=== PATIENT | female | born 1955 | race Hispanic/Latino ===

== ENCOUNTER 2016-06-29 00:49 | Emergency (ER) | payer MEDICARE, MEDICAID ==
--- NOTE | 2016-06-29 02:55 | Emergency Department Report ---
Chief Complaint: Overdose Stated Complaint: POSS OD Time Seen by Provider: 06/29/16 02:40 - HPI History of Present Illness: Patient is brought to the hospital by EMS after being found down and unresponsive. Found at home without signs of trauma. EMS gave Narcan with some clinical improvement. Patient denies overdose. She denies homicidality and suicidality. Patient has no recollection of event. She reports a mechanical fall on Sunday, and acute on chronic back pain. Vital Signs 06/29/16 06/29/16 01:08 01:21 Temperature 98.7 F Pulse Rate 108 H Respiratory 22 20 Rate Blood Pressure 106/72 Blood Pressure 106/72 [Left] O2 Sat by Pulse 100 100 Oximetry - Exam Vital Signs: Vital Signs 06/29/16 06/29/16 01:08 01:21 Temperature 98.7 F Pulse Rate 108 H Respiratory 22 20 Rate Blood Pressure 106/72 Blood Pressure 106/72 [Left] O2 Sat by Pulse 100 100 Oximetry MSE screening note: Focused history and physical exam performed. Due to findings the following was ordered: ED Disposition for MSE Condition: Stable Referrals: PRIMARY CARE, [Primary Care Provider] - 3-5 Days
[2016-06-29 04:22] LABS: Hematocrit 42.6 % (30.3-42.9); Mean Corpuscular HGB Conc 33 % (30-34); Mean Corpuscular Hemoglobin 33 pg (28-32); Mean Corpuscular Volume 102 fl (79-97); Platelet Count 116 K/mm3 (140-440); Red Blood Count 4.19 M/mm3 (3.65-5.03); Red Cell Distribution Width 14.1 % (13.2-15.2); White Blood Count 8.2 K/mm3 (4.5-11.0)
[2016-06-29 04:29] LABS: Urine Drugs of Abuse Note Disclamer
[2016-06-29 04:44] LABS: Alanine Aminotransferase 31 units/L (7-56); Albumin 3.6 g/dL (3.9-5); Alkaline Phosphatase 93 units/L (35-129); Anion Gap 28 mmol/L; Bilirubin,Total 1.4 mg/dL (0.1-1.2); Blood Urea Nitrogen 9 mg/dL (7-17); Calcium 9.1 mg/dL (8.4-10.2); Carbon Dioxide 19 mmol/L (22-30); Glucose 98 mg/dL (65-100); Potassium 4.6 mmol/L (3.6-5.0); Sodium 134 mmol/L (137-145); Total Protein 7.1 g/dL (6.3-8.2)
[2016-06-29 04:51] LABS: Bilirubin,Urine NEG (Negative); Blood,Urine SM (Negative); Ketones,Urine NEG (Negative); Leukocyte Esterase,Urine NEG (Negative); Nitrite,Urine NEG (Negative); Protein,Urine <15 mg/dL mg/dL (Negative); Urobilinogen,Urine < 2.0 mg/dL (<2.0)
[2016-06-29 05:08] LABS: Magnesium 1.5 mg/dL (1.7-2.3)
[2016-06-29] MEDS ORDERED: TORADOL IM ONE ×2 (06:29→08:45)
--- NOTE | 2016-06-29 06:53 | Emergency Department Report ---
History of Present Illness - General Chief Complaint: Overdose Stated Complaint: POSS OD Time Seen by Provider: 06/29/16 02:40 Source: EMS Mode of arrival: Stretcher Limitations: Altered Mental Status - History of Present Illness MD Complaint: accidental overdose -: Gradual, hour(s) (5) Intent: other (had a ground level fall and had back pain and founded some old percocets) Treatments Prior to Arrival: oxygen, narcan - Related Data Previous Rx's Medication Instructions Recorded Last Taken Type levETIRAcetam [Keppra TAB] 500 mg PO BID #60 tablet 03/17/16 Unknown Rx Allergies Allergy/AdvReac Type Severity Reaction Status Date / Time Sulfa (Sulfonamide Allergy Rash Verified 03/17/16 07:07 Antibiotics) ED Review of Systems ROS: Stated complaint: POSS OD Other details as noted in HPI Constitutional: denies: chills, fever Eyes: denies: eye pain, eye discharge, vision change ENT: denies: ear pain, throat pain Respiratory: denies: cough, shortness of breath, wheezing Cardiovascular: denies: chest pain, palpitations Endocrine: no symptoms reported Gastrointestinal: denies: abdominal pain, nausea, diarrhea Genitourinary: denies: urgency, dysuria, discharge Musculoskeletal: denies: back pain, joint swelling, arthralgia Skin: denies: rash, lesions Neurological: denies: headache, weakness, paresthesias Psychiatric: denies: anxiety, depression Hematological/Lymphatic: denies: easy bleeding, easy bruising ED Past Medical Hx - Past Medical History Previous Medical History?: Yes Hx Liver Disease: Yes (cirrhosis) Hx Seizures: Yes Additional medical history: hep c - Surgical History Past Surgical History?: Yes Additional Surgical History: back surgery x5 - Social History Smoking Status: Unknown if ever smoked Substance Use Type: Prescribed - Medications Home Medications: Home Medications Medication Instructions Recorded Confirmed Last Taken Type levETIRAcetam [Keppra TAB] 500 mg PO BID #60 tablet 03/17/16 Unknown Rx ED Physical Exam - General Limitations: No Limitations (saw her at 620 am and patient is alert and awake) General appearance: alert, in no apparent distress - Head Head exam: Present: atraumatic, normocephalic - Eye Eye exam: Present: normal appearance - ENT ENT exam: Present: mucous membranes moist - Neck Neck exam: Present: normal inspection - Respiratory Respiratory exam: Present: normal lung sounds bilaterally. Absent: respiratory distress - Cardiovascular Cardiovascular Exam: Present: regular rate, normal rhythm. Absent: systolic murmur, diastolic murmur, rubs, gallop - GI/Abdominal GI/Abdominal exam: Present: soft, normal bowel sounds - Extremities Exam Extremities exam: Present: normal inspection - Back Exam Back exam: Present: normal inspection - Neurological Exam Neurological exam: Present: alert, oriented X3 - Psychiatric Psychiatric exam: Present: normal affect, normal mood. Absent: depressed, agitated, anxious - Skin Skin exam: Present: warm, dry, intact, normal color. Absent: rash ED Course Vital Signs 06/29/16 06/29/16 06/29/16 01:08 01:21 05:54 Temperature 98.7 F Pulse Rate 108 H 64 Respiratory 22 20 18 Rate Blood Pressure 106/72 Blood Pressure 106/72 92/40 [Left] O2 Sat by Pulse 100 100 97 Oximetry 06/29/16 06/29/16 06/29/16 06:40 07:30 08:44 Temperature Pulse Rate 85 79 Respiratory 18 15 Rate Blood Pressure Blood Pressure 108/64 83/41 104/53 [Left] O2 Sat by Pulse 95 95 Oximetry ED Medical Decision Making - Lab Data Result diagrams: 06/29/16 04:00 06/29/16 04:00 - EKG Data -: EKG Interpreted by Me EKG shows normal: sinus rhythm Rate: normal - EKG Data When compared to previous EKG there are: no significant change Interpretation: no acute changes Critical care attestation.: If time is entered above; I have spent that time in minutes in the direct care of this critically ill patient, excluding procedure time. ED Disposition Clinical Impression: Acute hyperactive opioid intoxication delirium without use disorder Disposition: DISCHARGED TO HOME OR SELFCARE Is pt being admited?: No Does the pt Need Aspirin: No Condition: Good Referrals: PRIMARY CARE, [Primary Care Provider] - 3-5 Days [facility] [Outside] - 3-5 Days Time of Disposition: 08:52
[2016-06-29] MEDS ORDERED: NACL 0.9% 1000 ML 1,000 ML ONE (07:19)
--- NOTE | 2016-06-29 07:28 | Cat Scan Report ---
CT scan of lumbar spine: History: Fall back in. Findings: No definite evidence of acute fracture noted. Normal height of vertebral bodies 2 decrease in height of intervertebral disc bases. Sclerotic articular surfaces with osteophyte suggestive severe degenerative changes. Severe degenerative changes also noted the facet joints. Old fractures are present in the facet joints cannot be entirely excluded. No evidence of significant bony spinal stenosis. Diffuse disc bulge at L2-L3, L3-L4, L4-L5 and L5-S1. Probable bilateral neural foramina narrowing. Impression: Severe degenerative change is lumbar spine. No obvious evidence of acute fracture.
--- NOTE | 2016-06-29 07:29 | Cat Scan Report ---
FINAL REPORT PROCEDURE: CT HEAD/BRAIN WO CON TECHNIQUE: Computerized tomography of the head was performed without contrast material. HISTORY: loc COMPARISON: No prior studies are available for comparison. FINDINGS: Skull and scalp: Normal. Paranasal sinuses: Normal. Ventricles and subarachnoid spaces: Normal. Cerebrum: No evidence of hemorrhage, acute infarction or mass . Cerebellum and brainstem: No evidence of hemorrhage, acute infarction or mass. Vasculature: Normal. Comments: None. IMPRESSION: Normal Examination
[2016-06-29] MEDS ORDERED: NACL 0.9% 1000 ML 1,000 ML IV ONE (07:30)
--- NOTE | 2016-06-29 07:47 | XRay Report ---
Single view chest: Compared to 03/17/16. History: Hypoxia. Findings: Normal cardiomediastinal silhouette. Trachea is midline. No consolidation, pneumothorax or pleural effusion. Impression: No acute cardiopulmonary findings
[2016-06-29] MEDS ORDERED: PROVENTIL IH ONE (08:39)
[2016-06-29 08:45] VITALS: BP 104/53
== END 2016-06-29 11:13 | disposition home or self-care (01) ==
LOC: ED 00:49
DX: F11.121 Opioid abuse with intoxication delirium (principal); Z88.2 Allergy status to sulfonamides
CPT/HCPCS: 36415; 51701; 70450; 71010; 72131; 80053; 80307; 81001; 82550; 83735; 84484; 85027; 93005; 93010; 94640; 96360; 96372; 99285; G0480; J1885; J7030; 80320

== ENCOUNTER 2016-12-09 11:03 | Inpatient (IN) | payer MEDICARE ==
[2016-12-09 12:14] LABS: Bilirubin,Urine NEG (Negative); Blood,Urine NEG (Negative); Ketones,Urine NEG (Negative); Leukocyte Esterase,Urine NEG (Negative); Mucus,Urine FEW /HPF; Nitrite,Urine NEG (Negative); Protein,Urine <15 mg/dL mg/dL (Negative); WBC,Urine < 1.0 /HPF (0.0-6.0)
--- NOTE | 2016-12-09 12:35 | Emergency Department Report ---
HPI - General Chief Complaint: Altered Mental Status Time Seen by Provider: 12/09/16 12:09 - HPI HPI: Room 2 Patient is a 61-year-old female presenting with chief complaint of altered mental status. Patient was brought in by EMS for altered mental status. EMS reports the patient had a physician's appointment 3 days ago when she got home from the appointment she refused to get off of the floor. EMS reports the patient sustained an the past 3 days. Patient appears confused and does not answer questions appropriately. Patient continuously asks about her dog. Location: Mental state Duration: [see above] Quality: Confusion Severity: Moderate Modifying factors: [see above] Context: [see above] Mode of transportation: [not driving] ED Past Medical Hx - Past Medical History Hx Liver Disease: Yes (cirrhosis) Hx Seizures: Yes Additional medical history: hep c, leukemia - Surgical History Additional Surgical History: back surgery x5 - Family History Family history: no significant - Social History Smoking Status: Never Smoker Substance Use Type: None, Alcohol - Medications Home Medications: Home Medications Medication Instructions Recorded Confirmed Last Taken Type levETIRAcetam [Keppra TAB] 500 mg PO BID #60 tablet 03/17/16 Unknown Rx ED Review of Systems ROS: Stated complaint: SEVERE DIARRHEA,AMS Other details as noted in HPI Comment: Unobtainable due to pts medical conditions Physical Exam - Physical Exam Vital Signs: Vital Signs 12/09/16 12/09/16 11:34 11:42 Temperature 98.8 F Pulse Rate 86 Respiratory 16 Rate Blood Pressure 113/65 O2 Sat by Pulse 100 Oximetry Physical Exam: GENERAL: The patient is well-developed well-nourished female lying on stretcher appearing confused with clear speech. [] HEENT: Normocephalic. Abrasion/contusion to right cheek. Extraocular motions are intact. Patient has moist mucous membranes. NECK: Supple. Trachea midline CHEST/LUNGS: Clear to auscultation. There is no respiratory distress noted. HEART/CARDIOVASCULAR: Regular. There is no tachycardia. There is no gallop rub or murmur. ABDOMEN: Abdomen is soft, nontender. Patient has normal bowel sounds. There is no abdominal distention. SKIN: There is no rash. There is no edema. There is no diaphoresis. NEURO: The patient is awake and alert but is unable to tell the year or her current location. The patient is intermittently cooperative. The patient has no focal neurologic deficits. The patient has normal speech. Snowboard Designer equal bilaterally. No pronator drift. Moves all extremities MUSCULOSKELETAL: There is no limitation range of motion. ED Course Vital Signs 12/09/16 12/09/16 11:34 11:42 Temperature 98.8 F Pulse Rate 86 Respiratory 16 Rate Blood Pressure 113/65 O2 Sat by Pulse 100 Oximetry ED Medical Decision Making - Lab Data Result diagrams: 12/09/16 12:16 12/09/16 12:16 Laboratory Tests 12/09/16 12/09/16 12/09/16 11:41 11:44 12:16 WBC 6.9 RBC 4.24 Hgb 15.0 H Hct 43.8 H MCV 103 H MCH 35 H MCHC 34 RDW 15.0 Plt Count 123 L [place] % (Auto) [place]eler Add Manual Diff Complete Total Counted 100 Seg Neuts % (Manual) 66.0 Band Neutrophils % 3.0 Lymphocytes % (Manual) 9.0 L Reactive Lymphs % (Man) 0 Monocytes % (Manual) 22.0 H Eosinophils % (Manual) 0 Metamyelocytes % 0 Myelocytes % 0 Promyelocytes % 0 Blast Cells % 0 Nucleated RBC % Not Reportable Seg Neutrophils # Man 4.6 Band Neutrophils # 0.2 Lymphocytes # (Manual) 0.6 L Abs React Lymphs (Man) 0.0 Monocytes # (Manual) 1.5 H Eosinophils # (Manual) 0.0 Basophils # (Manual) 0.0 Metamyelocytes # 0.0 Myelocytes # 0.0 Promyelocytes # 0.0 Blast Cells # 0.0 WBC Morphology Not Reportable Hypersegmented Neuts Not Reportable Hyposegmented Neuts Not Reportable Hypogranular Neuts Not Reportable Smudge Cells Not Reportable Toxic Granulation Not Reportable Toxic Vacuolation Not Reportable Dohle Bodies Not Reportable Pelger-Huet Anomaly Not Reportable Chaya Rods Not Reportable Platelet Estimate Cons Clumped Platelets Not Reportable Plt Clumps, EDTA Not Reportable Large Platelets Rare Giant Platelets Not Reportable Platelet Satelliting Not Reportable Plt Morphology Comment Not Reportable RBC Morphology Not Reportable Dimorphic RBCs Not Reportable Polychromasia Not Reportable Hypochromasia Not Reportable Poikilocytosis Not Reportable Anisocytosis 1+ Microcytosis Not Reportable Macrocytosis Not Reportable Spherocytes Not Reportable Pappenheimer Bodies Not Reportable Sickle Cells Not Reportable Target Cells Not Reportable Tear Drop Cells Not Reportable Ovalocytes Not Reportable Helmet Cells Not Reportable Villar-[place] Bodies Not Reportable Jeremiah Rings Not Reportable [place] Cells Not Reportable Bite Cells Not Reportable Crenated Cell Not Reportable Elliptocytes Not Reportable Acanthocytes (Spur) Not Reportable Rouleaux Not Reportable Hemoglobin C Crystals Not Reportable Schistocytes Not Reportable Malaria parasites Not Reportable Hugo Bodies Not Reportable Hem Pathologist Commnt No PT INR APTT Sodium Potassium Chloride Carbon Dioxide Anion Gap BUN Creatinine Estimated GFR BUN/Creatinine Ratio Glucose POC Glucose 114 H Lactic Acid Calcium Total Bilirubin AST ALT Alkaline Phosphatase Ammonia Total Creatine Kinase CK-MB (CK-2) CK-MB (CK-2) Rel Index Troponin T Total Protein Albumin Albumin/Globulin Ratio Urine Color [place] Urine Turbidity Clear Urine pH 6.0 Ur Specific [place] 1.012 Urine Protein <15 mg/dl Urine Glucose (UA) Neg Urine Ketones Neg Urine Blood Neg Urine Nitrite Neg Urine Bilirubin Neg Urine Urobilinogen 4.0 Ur Leukocyte Esterase Neg Urine WBC (Auto) < 1.0 Urine RBC (Auto) 1.0 U Epithel Cells (Auto) < 1.0 Hyaline Casts 1 Urine Mucus Few 12/09/16 12/09/16 12/09/16 12:16 12:16 12:16 WBC RBC Hgb Hct MCV MCH MCHC RDW Plt Count [place] % (Auto) Add Manual Diff Total Counted Seg Neuts % (Manual) Band Neutrophils % Lymphocytes % (Manual) Reactive Lymphs % (Man) Monocytes % (Manual) Eosinophils % (Manual) Metamyelocytes % Myelocytes % Promyelocytes % Blast Cells % Nucleated RBC % Seg Neutrophils # Man Band Neutrophils # Lymphocytes # (Manual) Abs React Lymphs (Man) Monocytes # (Manual) Eosinophils # (Manual) Basophils # (Manual) Metamyelocytes # Myelocytes # Promyelocytes # Blast Cells # WBC Morphology Hypersegmented Neuts Hyposegmented Neuts Hypogranular Neuts Smudge Cells Toxic Granulation Toxic Vacuolation Dohle Bodies Pelger-Huet Anomaly Chaya Rods Platelet Estimate Clumped Platelets Plt Clumps, EDTA Large Platelets Giant Platelets Platelet Satelliting Plt Morphology Comment RBC Morphology Dimorphic RBCs Polychromasia Hypochromasia Poikilocytosis Anisocytosis Microcytosis Macrocytosis Spherocytes Pappenheimer Bodies Sickle Cells Target Cells Tear Drop Cells Ovalocytes Helmet Cells Villar[place] Bodies Jeremiah Rings Lynda Cells Bite Cells Crenated Cell Elliptocytes Acanthocytes (Spur) Rouleaux Hemoglobin C Crystals Schistocytes Malaria parasites Hugo Bodies Hem Pathologist Commnt PT INR APTT Sodium 133 L Potassium 4.5 Chloride 93.2 L Carbon Dioxide 24 Anion Gap 20 BUN 18 H Creatinine 1.1 Estimated GFR 50 BUN/Creatinine Ratio 16.36 Glucose 119 H POC Glucose Lactic Acid 3.60 H* Calcium 9.2 Total Bilirubin 2.70 H AST 194 H ALT 49 Alkaline Phosphatase 94 Ammonia Total Creatine Kinase CK-MB (CK-2) CK-MB (CK-2) Rel Index Troponin T < 0.010 Total Protein 7.6 Albumin 3.5 L Albumin/Globulin Ratio 0.9 Urine Color Urine Turbidity Urine pH Ur Specific [place] Urine Protein Urine Glucose (UA) Urine Ketones Urine Blood Urine Nitrite Urine Bilirubin Urine Urobilinogen Ur Leukocyte Esterase Urine WBC (Auto) Urine RBC (Auto) U Epithel Cells (Auto) Hyaline Casts Urine Mucus 12/09/16 12/09/16 12/09/16 12:29 12:29 12:29 WBC RBC Hgb Hct MCV MCH MCHC RDW Plt Count [place] % (Auto) Add Manual Diff Total Counted Seg Neuts % (Manual) Band Neutrophils % Lymphocytes % (Manual) Reactive Lymphs % (Man) Monocytes % (Manual) Eosinophils % (Manual) Metamyelocytes % Myelocytes % Promyelocytes % Blast Cells % Nucleated RBC % Seg Neutrophils # Man Band Neutrophils # Lymphocytes # (Manual) Abs React Lymphs (Man) Monocytes # (Manual) Eosinophils # (Manual) Basophils # (Manual) Metamyelocytes # Myelocytes # Promyelocytes # Blast Cells # WBC Morphology Hypersegmented Neuts Hyposegmented Neuts Hypogranular Neuts Smudge Cells Toxic Granulation Toxic Vacuolation Dohle Bodies Pelger-Huet Anomaly Chaya Rods Platelet Estimate Clumped Platelets Plt Clumps, EDTA Large Platelets Giant Platelets Platelet Satelliting Plt Morphology Comment RBC Morphology Dimorphic RBCs Polychromasia Hypochromasia Poikilocytosis Anisocytosis Microcytosis Macrocytosis Spherocytes Pappenheimer Bodies Sickle Cells Target Cells Tear Drop Cells Ovalocytes Helmet Cells [place] Bodies Jeremiah Rings Lynda Cells Bite Cells Crenated Cell Elliptocytes Acanthocytes (Spur) Rouleaux Hemoglobin C Crystals Schistocytes Malaria parasites Hugo Bodies Hem Pathologist Commnt PT 18.0 H INR 1.41 H APTT 32.4 Sodium Potassium Chloride Carbon Dioxide Anion Gap BUN Creatinine Estimated GFR BUN/Creatinine Ratio Glucose POC Glucose Lactic Acid Calcium Total Bilirubin AST ALT Alkaline Phosphatase Ammonia 116.0 H Total Creatine Kinase 8426 H CK-MB (CK-2) 80.2 H CK-MB (CK-2) Rel Index 0.9 Troponin T Total Protein Albumin Albumin/Globulin Ratio Urine Color Urine Turbidity Urine pH Ur Specific [place] Urine Protein Urine Glucose (UA) Urine Ketones Urine Blood Urine Nitrite Urine Bilirubin Urine Urobilinogen Ur Leukocyte Esterase Urine WBC (Auto) Urine RBC (Auto) U Epithel Cells (Auto) Hyaline Casts Urine Mucus - EKG Data -: EKG Interpreted by Me EKG shows normal: sinus rhythm Rate: normal - EKG Data When compared to previous EKG there are: previous EKG unavailable Interpretation: nonspecific ST-T wave amandeep (T-wave inversions in lead 3) - Radiology Data Radiology results: report reviewed (CT head, CT cervical spine, CT facial bones) , image reviewed (CT head, CT cervical spine, CT facial bones, chest x-ray) interpreted by me: Chest x-ray-left lower lobe atelectasis, no pneumothorax See report - Differential Diagnosis hepatic encephalopathy, ICH, rhabdomyolysis, Critical care attestation.: If time is entered above; I have spent that time in minutes in the direct care of this critically ill patient, excluding procedure time. ED Disposition Clinical Impression: Altered mental status, Rhabdomyolysis, Hepatic encephalopathy Disposition: OP ADMIT IP TO THIS HOSP Is pt being admited?: Yes Condition: Fair Referrals: PRIMARY CARE, [Primary Care Provider] - 3-5 Days Time of Disposition: 15:18 (hospitalist notified)
[2016-12-09 13:01] LABS: Hematocrit 43.8 % (30.3-42.9); Mean Corpuscular HGB Conc 34 % (30-34); Mean Corpuscular Hemoglobin 35 pg (28-32); Mean Corpuscular Volume 103 fl (79-97); Platelet Count 123 K/mm3 (140-440); Red Blood Count 4.24 M/mm3 (3.65-5.03); White Blood Count 6.9 K/mm3 (4.5-11.0)
[2016-12-09 13:02] LABS: Albumin 3.5 g/dL (3.9-5); Albumin/Globulin Ratio 0.9 %; BUN/Creatinine Ratio 16.36; Bilirubin,Total 2.7 mg/dL (0.1-1.2); Calcium 9.2 mg/dL (8.4-10.2); Chloride 93.2 mmol/L (98-107); Potassium 4.5 mmol/L (3.6-5.0); Total Protein 7.6 g/dL (6.3-8.2)
[2016-12-09 13:12] LABS: INR 1.41 (0.87-1.13)
[2016-12-09 13:13] LABS: Partial Thromboplastin Time 32.4 Sec. (24.2-36.6)
[2016-12-09 13:24] LABS: Creatine Kinase MB 80.2 ng/mL (0.0-4.0)
[2016-12-09] MEDS ORDERED: CEPHULAC PO ONE (13:32)
--- NOTE | 2016-12-09 13:36 | XRay Report ---
AP CHEST :12/09/16 11:03:00 CLINICAL: Altered mental status. COMPARISON:06/29/16 FINDINGS: Normal heart and pulmonary vasculature. The lungs are mildly hyperexpanded. The lungs are clear except for stable left lower lobe subsegmental atelectasis versus scar. The bones and soft tissues are normal. IMPRESSION: Mild pulmonary hyperinflation and left lower lobe subsegmental atelectasis versus scar. No CHF or pneumonia.
[2016-12-09] MEDS ORDERED: NACL 0.9% 1000 ML 1,000 ML IV ONE (13:40)
[2016-12-09 14:05] LABS: Blastocytes % (Manual) 0 %; Eosinophils % (Manual) 0 % (0.0-4.3)
[2016-12-09 14:06] LABS: Anisocytosis 1+; Diff Status Complete; Large Platelets Rare; Platelet Estimate Cons
--- NOTE | 2016-12-09 14:23 | Cat Scan Report ---
FINAL REPORT PROCEDURE: CT CERVICAL SPINE WO CON TECHNIQUE: Computerized tomography of the cervical spine was performed from the skull base to T1 without contrast material. HISTORY: altered mental status, prior C-spine fusion COMPARISON: No prior studies are available for comparison. FINDINGS: Patient has had prior fusion of C5 and C6. Uncovertebral osteophytes at this level cause moderate left neural foraminal narrowing. Ligamentum flavum calcification is seen at C4-5 and C6-7. Left paracentral broad-based disc bulge or protrusion is seen at C3-4 causing cord contact and possible compression. Chronic changes at C4-5, C5-6 and C6-7 likely cause cord compression. There is no subluxation. No prevertebral soft tissue swelling is seen. No C-spine fracture is seen. IMPRESSION: Diffuse arthritic changes are seen with posterior element hypertrophy and calcified disc osteophyte complexes causing possible cord compression at C4-5, C5-6, and C6-7. At C3-4 there is broad-based left paracentral disc bulge or protrusion that may cause cord compression. This could be new or old.
--- NOTE | 2016-12-09 14:27 | Cat Scan Report ---
FINAL REPORT PROCEDURE: CT FACIAL BONES WO CON TECHNIQUE: Computerized tomography of the facial bones and soft tissues with axial and coronal sections performed from the cranial aspect of the frontal sinuses to the caudal portion of the mandible without contrast material. HISTORY: altered mental status, right facial contusions COMPARISON: No prior studies are available for comparison. FINDINGS: Trace mucosal thickening is seen in the paranasal sinuses, likely within normal limits. There is new versus old nondisplaced fracture of the tip of the nasal bones. Similar appearance is seen of the anterior maxillary spine the globes appear symmetric. No postseptal swelling is seen. Ecchymosis is seen in the right side of the face. No orbital or mandible fracture is seen. IMPRESSION: New versus old nondisplaced fractures are seen of the tips of the nasal bones and anterior maxillary spine.
--- NOTE | 2016-12-09 14:30 | History and Physical Report ---
History of Present Illness Chief complaint: confusion History of present illness: 61 YO Female with HCV, Seizure Disorder, Cirrhosis presents to ED for evaluation. Pt is confused and unable to provide history. History taken from ED staff, and EMS. Pt seen and evaluated in ED and foud to be disheveled, encephalopathic, with active rhabdomyolysis, and unable to provide history. EMS notified and upon arrival, Pt was found lying on floor, confused, and unable to get up. Pt last seen 3 days ago by PCP, and after returning home from appointment, pt has been lying on the floor. No reports of fever, chills, CP, Palpitations, NVD, Trauma, or recent ill contacts. Past History Past Medical History: hepatitis, seizures, other (Cirrhosis) Past Surgical History: Other (back surgery) Social history: , Lives alone. denies: smoking, alcohol abuse, prescription drug abuse, IV drug use Family history: hypertension Medications and Allergies Allergies Allergy/AdvReac Type Severity Reaction Status Date / Time Sulfa (Sulfonamide Allergy Rash Verified 03/17/16 07:07 Antibiotics) Home Medications Medication Instructions Recorded Confirmed Last Taken Type levETIRAcetam [Keppra TAB] 500 mg PO BID #60 tablet 03/17/16 Unknown Rx Active Meds: Active Medications Sodium Chloride (Nacl 0.9% 1000 Ml) 1,000 mls @ 999 mls/hr IV ONCE ONE Stop: 12/09/16 14:40 Last Admin: 12/09/16 14:15 Dose: 999 mls/hr Review of Systems ROS unobtainable: due to mental status Exam - Constitutional Vitals: Temp Pulse Resp BP Pulse Ox 98.8 F 86 16 113/65 100 12/09/16 11:42 12/09/16 11:34 12/09/16 11:34 12/09/16 11:34 12/09/16 11:34 General appearance: Present: mild distress, obese, disheveled - Respiratory Respiratory effort: normal Respiratory: bilateral: CTA - Cardiovascular Heart Sounds: Present: S1 & S2. Absent: rub, click - Extremities Extremities: pulses symmetrical, No edema Peripheral Pulses: within normal limits - Abdominal General gastrointestinal: Present: soft, non-tender, non-distended, normal bowel sounds Female genitourinary: Present: normal - Integumentary Integumentary: Present: clear, warm, dry - Musculoskeletal Musculoskeletal: generalized weakness - Psychiatric Psychiatric: no intact judgment & insight, no memory intact - Neurologic Neurologic: CNII-XII intact, moves all extremities Results - Labs CBC & Chem 7: 12/09/16 12:16 12/09/16 12:16 Labs: Abnormal lab results 12/09/16 12/09/16 12/09/16 Range/Units 11:44 12:16 12:16 Hgb 15.0 H (10.1-14.3) gm/dl Hct 43.8 H (30.3-42.9) % MCV 103 H (79-97) fl MCH 35 H (28-32) pg Plt Count 123 L (140-440) K/mm3 Lymphocytes % (Manual) 9.0 L (13.4-35.0) % Monocytes % (Manual) 22.0 H (0.0-7.3) % Lymphocytes # (Manual) 0.6 L (1.2-5.4) K/mm3 Monocytes # (Manual) 1.5 H (0.0-0.8) K/mm3 PT (12.2-14.9) Sec. INR (0.87-1.13) Sodium 133 L (137-145) mmol/L Chloride 93.2 L (98-107) mmol/L BUN 18 H (7-17) mg/dL Glucose 119 H (65-100) mg/dL POC Glucose 114 H (70-105) Lactic Acid (0.7-2.0) mmol/L Total Bilirubin 2.70 H (0.1-1.2) mg/dL AST 194 H (5-40) units/L Ammonia (25-60) umol/L Total Creatine Kinase (30-135) units/L CK-MB (CK-2) (0.0-4.0) ng/mL Albumin 3.5 L (3.9-5) g/dL 12/09/16 12/09/16 12/09/16 Range/Units 12:16 12:29 12:29 Hgb (10.1-14.3) gm/dl Hct (30.3-42.9) % MCV (79-97) fl MCH (28-32) pg Plt Count (140-440) K/mm3 Lymphocytes % (Manual) (13.4-35.0) % Monocytes % (Manual) (0.0-7.3) % Lymphocytes # (Manual) (1.2-5.4) K/mm3 Monocytes # (Manual) (0.0-0.8) K/mm3 PT 18.0 H (12.2-14.9) Sec. INR 1.41 H (0.87-1.13) Sodium (137-145) mmol/L Chloride (98-107) mmol/L BUN (7-17) mg/dL Glucose (65-100) mg/dL POC Glucose (70-105) Lactic Acid 3.60 H* (0.7-2.0) mmol/L Total Bilirubin (0.1-1.2) mg/dL AST (5-40) units/L Ammonia 116.0 H (25-60) umol/L Total Creatine Kinase (30-135) units/L CK-MB (CK-2) (0.0-4.0) ng/mL Albumin (3.9-5) g/dL 12/09/16 Range/Units 12:29 Hgb (10.1-14.3) gm/dl Hct (30.3-42.9) % MCV (79-97) fl MCH (28-32) pg Plt Count (140-440) K/mm3 Lymphocytes % (Manual) (13.4-35.0) % Monocytes % (Manual) (0.0-7.3) % Lymphocytes # (Manual) (1.2-5.4) K/mm3 Monocytes # (Manual) (0.0-0.8) K/mm3 PT (12.2-14.9) Sec. INR (0.87-1.13) Sodium (137-145) mmol/L Chloride (98-107) mmol/L BUN (7-17) mg/dL Glucose (65-100) mg/dL POC Glucose (70-105) Lactic Acid (0.7-2.0) mmol/L Total Bilirubin (0.1-1.2) mg/dL AST (5-40) units/L Ammonia (25-60) umol/L Total Creatine Kinase 8426 H (30-135) units/L CK-MB (CK-2) 80.2 H (0.0-4.0) ng/mL Albumin (3.9-5) g/dL Assessment and Plan - Patient Problems (1) Rhabdomyolysis Current Visit: Yes Status: Acute Qualifiers: Rhabdomyolysis type: R Encounter type: E Plan to address problem: IVF resuscitation, monitor uop q shift, supportive care, repeat ck level (2) Lactic acidosis Current Visit: Yes Status: Acute Plan to address problem: IVF resuscitation, repeat lactic acid level, serial physical exams. (3) HCV (hepatitis C virus) Current Visit: Yes Status: Acute Qualifiers: Viral hepatitis chronicity: V Hepatic coma status: H Plan to address problem: Outpatient GI F/U (4) Hepatic encephalopathy Current Visit: Yes Status: Acute Plan to address problem: Lactulose, serial ammonia level, neuro checks. (5) DVT prophylaxis Current Visit: Yes Status: Acute
--- NOTE | 2016-12-09 14:31 | Cat Scan Report ---
FINAL REPORT PROCEDURE: CT HEAD/BRAIN WO CON TECHNIQUE: Computerized tomography of the head was performed without contrast material. HISTORY: altered mental status COMPARISON: CT exam dated June 29, 2016 FINDINGS: Trace mucosal thickening is seen in the paranasal sinuses, likely within normal limits. Mastoid air cells appear clear. There may be nondisplaced fractures of the tips of the nasal bones and anterior maxillary spine. No calvarial fracture is seen. Cerebral ventricles are normal in size. Minimal chronic small vessel ischemic changes are similar to prior study. No acute intracranial hemorrhage or mass effect is seen. IMPRESSION: Calvarial fracture or acute intracranial hemorrhage is seen.
[2016-12-09] MEDS ORDERED: PROVENTIL IH PRN (14:33)
[2016-12-09] MEDS ORDERED: NACL 0.9% 1000 ML 1,000 ML IV SCH (15:00)
[2016-12-10] MEDS: NACL 0.9% 1000 ML 2,000 ML IV SCH ×3 (02:21→18:05)
[2016-12-10] MEDS: CEPHULAC PO SCH (09:45)
--- NOTE | 2016-12-10 22:23 | Progress Note ---
Assessment and Plan Assessment and plan: 1. Acute hepatic encephalopathy Continue lactulose, supportive care Monitor ammonia level 2. HCV/cirrhosis 3. Rhabdomyolysis Traumatic, found down IV fluids, and CPK 4. Acute kidney injury Possible secondary to vasomotor nephropathy due to poor intake/rhabdomyolysis IV fluids, monitor renal function/electrolytes 5. Lactic acidosis No sign/symptoms of infection 6. Seizure disorder Reason on medications 7. Thrombocytopenia Likely secondary to cirrhosis Monitor 8. DVT prophylaxis SCDs History Interval history: Mental status improved, slightly confused, but able to answer questions appropriately; feeling better Hospitalist Physical - Constitutional Vitals: Temp Pulse Resp BP Pulse Ox 98.7 F 83 18 118/73 99 12/10/16 20:29 12/10/16 20:29 12/10/16 20:29 12/10/16 20:29 12/10/16 20:29 General appearance: Present: no acute distress - EENT Eyes: Present: PERRL, EOM intact. Absent: scleral icterus, conjunctival injection - Neck Neck: Present: supple, normal ROM. Absent: masses or JVD - Respiratory Respiratory effort: normal Respiratory: bilateral: CTA, negative: rhonchi, wheezing - Cardiovascular Rhythm: regular Heart Sounds: Present: S1 & S2. Absent: systolic murmur - Extremities Extremities: no ischemia - Abdominal General gastrointestinal: soft, non-tender, non-distended, normal bowel sounds - Psychiatric Psychiatric: cooperative - Neurologic Neurologic: CNII-XII intact, no focal deficits Results - Labs CBC & Chem 7: 12/09/16 12:16 12/09/16 12:16 Labs: Laboratory Last Values WBC 6.9 K/mm3 (4.5-11.0) 12/09/16 12:16 RBC 4.24 M/mm3 (3.65-5.03) 12/09/16 12:16 Hgb 15.0 gm/dl (10.1-14.3) H 12/09/16 12:16 Hct 43.8 % (30.3-42.9) H 12/09/16 12:16 MCV 103 fl (79-97) H 12/09/16 12:16 MCH 35 pg (28-32) H 12/09/16 12:16 MCHC 34 % (30-34) 12/09/16 12:16 RDW 15.0 % (13.2-15.2) 12/09/16 12:16 Plt Count 123 K/mm3 (140-440) L 12/09/16 12:16 [place] % (Auto) Relay Man 12/09/16 12:16 Add Manual Diff Complete 12/09/16 12:16 Total Counted 100 12/09/16 12:16 Seg Neuts % (Manual) 66.0 % (40.0-70.0) 12/09/16 12:16 Band Neutrophils % 3.0 % 12/09/16 12:16 Lymphocytes % (Manual) 9.0 % (13.4-35.0) L 12/09/16 12:16 Reactive Lymphs % (Man) 0 % 12/09/16 12:16 Monocytes % (Manual) 22.0 % (0.0-7.3) H 12/09/16 12:16 Eosinophils % (Manual) 0 % (0.0-4.3) 12/09/16 12:16 Metamyelocytes % 0 % 12/09/16 12:16 Myelocytes % 0 % 12/09/16 12:16 Promyelocytes % 0 % 12/09/16 12:16 Blast Cells % 0 % 12/09/16 12:16 Nucleated RBC % Not Reportable 12/09/16 12:16 Seg Neutrophils # Man 4.6 K/mm3 (1.8-7.7) 12/09/16 12:16 Band Neutrophils # 0.2 K/mm3 12/09/16 12:16 Lymphocytes # (Manual) 0.6 K/mm3 (1.2-5.4) L 12/09/16 12:16 Abs React Lymphs (Man) 0.0 K/mm3 12/09/16 12:16 Monocytes # (Manual) 1.5 K/mm3 (0.0-0.8) H 12/09/16 12:16 Eosinophils # (Manual) 0.0 K/mm3 (0.0-0.4) 12/09/16 12:16 Basophils # (Manual) 0.0 K/mm3 (0.0-0.1) 12/09/16 12:16 Metamyelocytes # 0.0 K/mm3 12/09/16 12:16 Myelocytes # 0.0 K/mm3 12/09/16 12:16 Promyelocytes # 0.0 K/mm3 12/09/16 12:16 Blast Cells # 0.0 K/mm3 12/09/16 12:16 WBC Morphology Not Reportable 12/09/16 12:16 Hypersegmented Neuts Not Reportable 12/09/16 12:16 Hyposegmented Neuts Not Reportable 12/09/16 12:16 Hypogranular Neuts Not Reportable 12/09/16 12:16 Smudge Cells Not Reportable 12/09/16 12:16 Toxic Granulation Not Reportable 12/09/16 12:16 Toxic Vacuolation Not Reportable 12/09/16 12:16 Dohle Bodies Not Reportable 12/09/16 12:16 Pelger-Huet Anomaly Not Reportable 12/09/16 12:16 Chaya Rods Not Reportable 12/09/16 12:16 Platelet Estimate Cons 12/09/16 12:16 Clumped Platelets Not Reportable 12/09/16 12:16 Plt Clumps, EDTA Not Reportable 12/09/16 12:16 Large Platelets Rare 12/09/16 12:16 Giant Platelets Not Reportable 12/09/16 12:16 Platelet Satelliting Not Reportable 12/09/16 12:16 Plt Morphology Comment Not Reportable 12/09/16 12:16 RBC Morphology Not Reportable 12/09/16 12:16 Dimorphic RBCs Not Reportable 12/09/16 12:16 Polychromasia Not Reportable 12/09/16 12:16 Hypochromasia Not Reportable 12/09/16 12:16 Poikilocytosis Not Reportable 12/09/16 12:16 Anisocytosis 1+ 12/09/16 12:16 Microcytosis Not Reportable 12/09/16 12:16 Macrocytosis Not Reportable 12/09/16 12:16 Spherocytes Not Reportable 12/09/16 12:16 Pappenheimer Bodies Not Reportable 12/09/16 12:16 Sickle Cells Not Reportable 12/09/16 12:16 Target Cells Not Reportable 12/09/16 12:16 Tear Drop Cells Not Reportable 12/09/16 12:16 Ovalocytes Not Reportable 12/09/16 12:16 Helmet Cells Not Reportable 12/09/16 12:16 Villar-[place] Bodies Not Reportable 12/09/16 12:16 [place] Rings Not Reportable 12/09/16 12:16 [place] Cells Not Reportable 12/09/16 12:16 Bite Cells Not Reportable 12/09/16 12:16 Crenated Cell Not Reportable 12/09/16 12:16 Elliptocytes Not Reportable 12/09/16 12:16 Acanthocytes (Spur) Not Reportable 12/09/16 12:16 Rouleaux Not Reportable 12/09/16 12:16 Hemoglobin C Crystals Not Reportable 12/09/16 12:16 Schistocytes Not Reportable 12/09/16 12:16 Malaria parasites Not Reportable 12/09/16 12:16 Hugo Bodies Not Reportable 12/09/16 12:16 Hem Pathologist Commnt No 12/09/16 12:16 PT 18.0 Sec. (12.2-14.9) H 12/09/16 12:29 INR 1.41 (0.87-1.13) H 12/09/16 12:29 APTT 32.4 Sec. (24.2-36.6) 12/09/16 12:29 Sodium 133 mmol/L (137-145) L 12/09/16 12:16 Potassium 4.5 mmol/L (3.6-5.0) 12/09/16 12:16 Chloride 93.2 mmol/L (98-107) L 12/09/16 12:16 Carbon Dioxide 24 mmol/L (22-30) 12/09/16 12:16 Anion Gap 20 mmol/L 12/09/16 12:16 BUN 18 mg/dL (7-17) H 12/09/16 12:16 Creatinine 1.1 mg/dL (0.7-1.2) 12/09/16 12:16 Estimated GFR 50 ml/min 12/09/16 12:16 BUN/Creatinine Ratio 16.36 % 12/09/16 12:16 Glucose 119 mg/dL (65-100) H 12/09/16 12:16 POC Glucose 114 (70-105) H 12/09/16 11:44 Lactic Acid 2.00 mmol/L (0.7-2.0) 12/10/16 00:01 Calcium 9.2 mg/dL (8.4-10.2) 12/09/16 12:16 Total Bilirubin 2.70 mg/dL (0.1-1.2) H 12/09/16 12:16 AST 194 units/L (5-40) H 12/09/16 12:16 ALT 49 units/L (7-56) 12/09/16 12:16 Alkaline Phosphatase 94 units/L (35-129) 12/09/16 12:16 Ammonia 116.0 umol/L (25-60) H 12/09/16 12:29 Total Creatine Kinase 8426 units/L (30-135) H 12/09/16 12:29 CK-MB (CK-2) 80.2 ng/mL (0.0-4.0) H 12/09/16 12:29 CK-MB (CK-2) Rel Index 0.9 (0-4) 12/09/16 12:29 Troponin T < 0.010 ng/mL (0.00-0.029) 12/09/16 12:16 Total Protein 7.6 g/dL (6.3-8.2) 12/09/16 12:16 Albumin 3.5 g/dL (3.9-5) L 12/09/16 12:16 Albumin/Globulin Ratio 0.9 % 12/09/16 12:16 Urine Color [place] (Yellow) 12/09/16 11:41 Urine Turbidity Clear (Clear) 12/09/16 11:41 Urine pH 6.0 (5.0-7.0) 12/09/16 11:41 Ur Specific [place] 1.012 (1.003-1.030) 12/09/16 11:41 Urine Protein <15 mg/dl mg/dL (Negative) 12/09/16 11:41 Urine Glucose (UA) Neg mg/dL (Negative) 12/09/16 11:41 Urine Ketones Neg mg/dL (Negative) 12/09/16 11:41 Urine Blood Neg (Negative) 12/09/16 11:41 Urine Nitrite Neg (Negative) 12/09/16 11:41 Urine Bilirubin Neg (Negative) 12/09/16 11:41 Urine Urobilinogen 4.0 mg/dL (<2.0) 12/09/16 11:41 Ur Leukocyte Esterase Neg (Negative) 12/09/16 11:41 Urine WBC (Auto) < 1.0 /HPF (0.0-6.0) 12/09/16 11:41 Urine RBC (Auto) 1.0 /HPF (0.0-6.0) 12/09/16 11:41 U Epithel Cells (Auto) < 1.0 /HPF (0-13.0) 12/09/16 11:41 Hyaline Casts 1 /LPF 12/09/16 11:41 Urine Mucus Few /HPF 12/09/16 11:41
[2016-12-10] MEDS: XANAX PO SCH (23:40)
[2016-12-10] MEDS: TRIPLE ANTIBIOTIC TP SCH (23:41)
--- NOTE | 2016-12-11 02:48 | Admit Criteria Form ---
Admission Criteria Documentation: MENTAL STATUS CHANGE Clinical Indications for Inpatient Care (Place 'X' for any and all applicable criteria): Ongoing inpatient care may be needed for 1 or more of the following(1)(2)(3)(5)( 6): [X ]I. Suspected serious etiology (eg, medical disorder, PUBLIC ADDRESS TECHNICIAN event) of altered mental status [ ]II. Danger to self or others not manageable at lower level of care [ ]III. Grave disability (eg, inability to perform self care necessary at lower level of care) [ ]IV. Agitation or inappropriate behavior interfering with care for primary condition (eg, attempting to discontinue lines or drains prematurely, unable to cooperate with respiratory care) [ ]V. Delirium [A] [D][E] as described by 1 or more of the following(26): [ ]a) Delirium due to alcohol or sedative [F] withdrawal [ ]b) Delirium of uncertain etiology that has not responded to appropriate empiric treatment [ ]c) Delirium that prevents performance of a life-sustaining function (eg, feeding or hydrating oneself) [ ]. General contraindications and/or Inappropriate clinical situations for Observational Care in patients with Mental Status Change, when ANY ONE of the following is required: [ ]a) Prediction of prolongation of LOS based on ANY ONE of the following may be considered as a contraindication for observational care 2, 3, 4, 5, 6, 7, 8, 9, 10, 11 [ ]i) Age > 65 yrs. [ ]ii) Patient arriving by ambulance [ ]iii) Patient with high acuity [ ]iv) Patient requiring vital sign monitoring [ ]v) Patient on IV medication [ ]b) Systolic blood pressures greater than or equal to 180mmHg 3, 12 [ ]c) Patient with altered mental status including delirium and other alteration of consciousness, (3) [ ]d) Patient whose discharge disposition will be to a senior care home or rehabilitation home should not be managed in Emergency Department Observation Unit. CMS rule requires 3 days hospital stay before such placement.3,13 [ ]e) Patient with failure to thrive due to broad array of etiologies 3,16,17 [ ]f) Inability to ambulate 3,14 Extended stay beyond goal length of stay for the primary condition may be needed until ALL of the following are present(3)(5): [ ]a) Underlying medical etiology of mental status change is absent, or has been established and adequately treated [ ]b) Danger to self or others is absent or manageable at lower level of care. [ ]c) Behavior crisis management, including physical or chemical restraints, is not required or available at lower level of car [ ]d) Substance or alcohol withdrawal is absent or manageable at lower level of care. [ ]e) Behavioral symptoms (eg, agitation, somnolence, inappropriate behavior) are absent, or are manageable at lower level of care. The original [facility] [employer] content created by [facility] [employer] has been revised. The portions of the content which have been revised are identified through the use of italic text or in bold, and [facility] has neither reviewed nor approved the modified material. All other unmodified content is copyright [facility] [employer]. Please see references footnoted in the original [facility] Admission Criteria Met: Yes
[2016-12-11] MEDS: NACL 0.9% 1000 ML 2,000 ML IV SCH ×2 (04:35→14:45)
[2016-12-11 05:28] LABS: White Blood Count 7.2 K/mm3 (4.5-11.0)
[2016-12-11 05:29] LABS: Basophils % (Auto) 0.4 % (0.0-1.8); Eosinophils % (Auto) 4.2 % (0.0-4.3); Hematocrit 41.7 % (30.3-42.9); Hemoglobin 14.2 gm/dl (10.1-14.3); Mean Corpuscular HGB Conc 34 % (30-34); Mean Corpuscular Hemoglobin 35 pg (28-32); Mean Corpuscular Volume 104 fl (79-97); Platelet Count 100 K/mm3 (140-440); Red Cell Distribution Width 15.3 % (13.2-15.2)
[2016-12-11 05:50] LABS: Alanine Aminotransferase 51 units/L (7-56); Albumin/Globulin Ratio 0.8 %; Alkaline Phosphatase 76 units/L (35-129); Anion Gap 17 mmol/L; Blood Urea Nitrogen 6 mg/dL (7-17); Calcium 8.5 mg/dL (8.4-10.2); Carbon Dioxide 23 mmol/L (22-30); Chloride 99.9 mmol/L (98-107); Glucose 101 mg/dL (65-100); Potassium 3.2 mmol/L (3.6-5.0); Sodium 137 mmol/L (137-145); Total Protein 6.7 g/dL (6.3-8.2)
[2016-12-11 06:02] LABS: Creatine Kinase 2675 units/L (30-135)
[2016-12-11] MEDS: TRIPLE ANTIBIOTIC TP SCH ×3 (08:47→20:00)
[2016-12-11] MEDS: POTASSIUM CHLORIDE FEEDTUBE SCH ×2 (08:58→14:28)
--- NOTE | 2016-12-11 09:24 | Progress Note ---
Assessment and Plan Assessment and plan: 1. Acute hepatic encephalopathy Continue lactulose, supportive care Ammopnia level 81 today 2. HCV/cirrhosis 3. Rhabdomyolysis Traumatic, was found down Continue iv fluids Creatine kinase 2675 tod 4. Lactic acidosis No sign/symptoms of infection 6. Seizure disorder 7. Thrombocytopenia Likely secondary to cirrhosis Monitor 8. DVT prophylaxis SCDs History Interval history: confusion improving, No chest pain Hospitalist Physical - Physical exam Narrative exam: Gen appearance: Not in acute distress HEENT: normocephalic, atraumatic Neck: supple, no JVD, BUDDY Lungs: Clear to auscultation bilaterally, no crackles or wheezes Heart :S1 and S2 regular, no murmurs, rubs or gallop Abdomen: Soft, Non tender, non distended, bowel sounds present Extremities :no edema, no clubbing or cyanosis Neuro: Mild confusion, no focal neurological signs - Constitutional Vitals: Temp Pulse Resp BP Pulse Ox 97.9 F 84 20 130/70 99 12/11/16 08:00 12/11/16 08:00 12/11/16 08:00 12/11/16 08:00 12/11/16 08:00 General appearance: Present: no acute distress Results - Labs CBC & Chem 7: 12/11/16 05:07 12/11/16 05:07 Labs: Laboratory Last Values WBC 7.2 K/mm3 (4.5-11.0) 12/11/16 05:07 RBC 4.00 M/mm3 (3.65-5.03) 12/11/16 05:07 Hgb 14.2 gm/dl (10.1-14.3) 12/11/16 05:07 Hct 41.7 % (30.3-42.9) 12/11/16 05:07 MCV 104 fl (79-97) H 12/11/16 05:07 MCH 35 pg (28-32) H 12/11/16 05:07 MCHC 34 % (30-34) 12/11/16 05:07 RDW 15.3 % (13.2-15.2) H 12/11/16 05:07 Plt Count 100 K/mm3 (140-440) L 12/11/16 05:07 Lymph % (Auto) 24.4 % (13.4-35.0) 12/11/16 05:07 [place] % (Auto) 14.9 % (0.0-7.3) H 12/11/16 05:07 [place] % (Auto) 4.2 % (0.0-4.3) 12/11/16 05:07 Baso % (Auto) 0.4 % (0.0-1.8) 12/11/16 05:07 Lymph # 1.8 K/mm3 (1.2-5.4) 12/11/16 05:07 [place] # 1.1 K/mm3 (0.0-0.8) H 12/11/16 05:07 Eos # 0.3 K/mm3 (0.0-0.4) 12/11/16 05:07 Baso # 0.0 K/mm3 (0.0-0.1) 12/11/16 05:07 Add Manual Diff Complete 12/09/16 12:16 Total Counted 100 12/09/16 12:16 Seg Neutrophils % 56.1 % (40.0-70.0) 12/11/16 05:07 Seg Neuts % (Manual) 66.0 % (40.0-70.0) 12/09/16 12:16 Band Neutrophils % 3.0 % 12/09/16 12:16 Lymphocytes % (Manual) 9.0 % (13.4-35.0) L 12/09/16 12:16 Reactive Lymphs % (Man) 0 % 12/09/16 12:16 Monocytes % (Manual) 22.0 % (0.0-7.3) H 12/09/16 12:16 Eosinophils % (Manual) 0 % (0.0-4.3) 12/09/16 12:16 Metamyelocytes % 0 % 12/09/16 12:16 Myelocytes % 0 % 12/09/16 12:16 Promyelocytes % 0 % 12/09/16 12:16 Blast Cells % 0 % 12/09/16 12:16 Nucleated RBC % Not Reportable 12/09/16 12:16 Seg Neutrophils # 4.1 K/mm3 (1.8-7.7) 12/11/16 05:07 Seg Neutrophils # Man 4.6 K/mm3 (1.8-7.7) 12/09/16 12:16 Band Neutrophils # 0.2 K/mm3 12/09/16 12:16 Lymphocytes # (Manual) 0.6 K/mm3 (1.2-5.4) L 12/09/16 12:16 Abs React Lymphs (Man) 0.0 K/mm3 12/09/16 12:16 Monocytes # (Manual) 1.5 K/mm3 (0.0-0.8) H 12/09/16 12:16 Eosinophils # (Manual) 0.0 K/mm3 (0.0-0.4) 12/09/16 12:16 Basophils # (Manual) 0.0 K/mm3 (0.0-0.1) 12/09/16 12:16 Metamyelocytes # 0.0 K/mm3 12/09/16 12:16 Myelocytes # 0.0 K/mm3 12/09/16 12:16 Promyelocytes # 0.0 K/mm3 12/09/16 12:16 Blast Cells # 0.0 K/mm3 12/09/16 12:16 WBC Morphology Not Reportable 12/09/16 12:16 Hypersegmented Neuts Not Reportable 12/09/16 12:16 Hyposegmented Neuts Not Reportable 12/09/16 12:16 Hypogranular Neuts Not Reportable 12/09/16 12:16 Smudge Cells Not Reportable 12/09/16 12:16 Toxic Granulation Not Reportable 12/09/16 12:16 Toxic Vacuolation Not Reportable 12/09/16 12:16 Dohle Bodies Not Reportable 12/09/16 12:16 Pelger-Huet Anomaly Not Reportable 12/09/16 12:16 Chaya Rods Not Reportable 12/09/16 12:16 Platelet Estimate Cons 12/09/16 12:16 Clumped Platelets Not Reportable 12/09/16 12:16 Plt Clumps, EDTA Not Reportable 12/09/16 12:16 Large Platelets Rare 12/09/16 12:16 Giant Platelets Not Reportable 12/09/16 12:16 Platelet Satelliting Not Reportable 12/09/16 12:16 Plt Morphology Comment Not Reportable 12/09/16 12:16 RBC Morphology Not Reportable 12/09/16 12:16 Dimorphic RBCs Not Reportable 12/09/16 12:16 Polychromasia Not Reportable 12/09/16 12:16 Hypochromasia Not Reportable 12/09/16 12:16 Poikilocytosis Not Reportable 12/09/16 12:16 Anisocytosis 1+ 12/09/16 12:16 Microcytosis Not Reportable 12/09/16 12:16 Macrocytosis Not Reportable 12/09/16 12:16 Spherocytes Not Reportable 12/09/16 12:16 Pappenheimer Bodies Not Reportable 12/09/16 12:16 Sickle Cells Not Reportable 12/09/16 12:16 Target Cells Not Reportable 12/09/16 12:16 Tear Drop Cells Not Reportable 12/09/16 12:16 Ovalocytes Not Reportable 12/09/16 12:16 Helmet Cells Not Reportable 12/09/16 12:16 [place] Bodies Not Reportable 12/09/16 12:16 [place] Rings Not Reportable 12/09/16 12:16 [place] Cells Not Reportable 12/09/16 12:16 Bite Cells Not Reportable 12/09/16 12:16 Crenated Cell Not Reportable 12/09/16 12:16 Elliptocytes Not Reportable 12/09/16 12:16 Acanthocytes (Spur) Not Reportable 12/09/16 12:16 Rouleaux Not Reportable 12/09/16 12:16 Hemoglobin C Crystals Not Reportable 12/09/16 12:16 Schistocytes Not Reportable 12/09/16 12:16 Malaria parasites Not Reportable 12/09/16 12:16 Hugo Bodies Not Reportable 12/09/16 12:16 Hem Pathologist Commnt No 12/09/16 12:16 PT 18.0 Sec. (12.2-14.9) H 12/09/16 12:29 INR 1.41 (0.87-1.13) H 12/09/16 12:29 APTT 32.4 Sec. (24.2-36.6) 12/09/16 12:29 Sodium 137 mmol/L (137-145) 12/11/16 05:07 Potassium 3.2 mmol/L (3.6-5.0) L D 12/11/16 05:07 Chloride 99.9 mmol/L (98-107) 12/11/16 05:07 Carbon Dioxide 23 mmol/L (22-30) 12/11/16 05:07 Anion Gap 17 mmol/L 12/11/16 05:07 BUN 6 mg/dL (7-17) L 12/11/16 05:07 Creatinine 0.5 mg/dL (0.7-1.2) L D 12/11/16 05:07 Estimated GFR > 60 ml/min 12/11/16 05:07 BUN/Creatinine Ratio 12.00 % 12/11/16 05:07 Glucose 101 mg/dL (65-100) H 12/11/16 05:07 POC Glucose 114 (70-105) H 12/09/16 11:44 Lactic Acid 2.00 mmol/L (0.7-2.0) 12/10/16 00:01 Calcium 8.5 mg/dL (8.4-10.2) 12/11/16 05:07 Total Bilirubin 2.90 mg/dL (0.1-1.2) H 12/11/16 05:07 AST 177 units/L (5-40) H 12/11/16 05:07 ALT 51 units/L (7-56) 12/11/16 05:07 Alkaline Phosphatase 76 units/L (35-129) 12/11/16 05:07 Ammonia 81.0 umol/L (25-60) H 12/11/16 05:07 Total Creatine Kinase 2675 units/L (30-135) H 12/11/16 05:07 CK-MB (CK-2) 80.2 ng/mL (0.0-4.0) H 12/09/16 12:29 CK-MB (CK-2) Rel Index 0.9 (0-4) 12/09/16 12:29 Troponin T < 0.010 ng/mL (0.00-0.029) 12/09/16 12:16 Total Protein 6.7 g/dL (6.3-8.2) 12/11/16 05:07 Albumin 3.0 g/dL (3.9-5) L 12/11/16 05:07 Albumin/Globulin Ratio 0.8 % 12/11/16 05:07 Urine Color [place] (Yellow) 12/09/16 11:41 Urine Turbidity Clear (Clear) 12/09/16 11:41 Urine pH 6.0 (5.0-7.0) 12/09/16 11:41 Ur Specific [place] 1.012 (1.003-1.030) 12/09/16 11:41 Urine Protein <15 mg/dl mg/dL (Negative) 12/09/16 11:41 Urine Glucose (UA) Neg mg/dL (Negative) 12/09/16 11:41 Urine Ketones Neg mg/dL (Negative) 12/09/16 11:41 Urine Blood Neg (Negative) 12/09/16 11:41 Urine Nitrite Neg (Negative) 12/09/16 11:41 Urine Bilirubin Neg (Negative) 12/09/16 11:41 Urine Urobilinogen 4.0 mg/dL (<2.0) 12/09/16 11:41 Ur Leukocyte Esterase Neg (Negative) 12/09/16 11:41 Urine WBC (Auto) < 1.0 /HPF (0.0-6.0) 12/09/16 11:41 Urine RBC (Auto) 1.0 /HPF (0.0-6.0) 12/09/16 11:41 U Epithel Cells (Auto) < 1.0 /HPF (0-13.0) 12/09/16 11:41 Hyaline Casts 1 /LPF 12/09/16 11:41 Urine Mucus Few /HPF 12/09/16 11:41
[2016-12-11] MEDS: KEPPRA PO SCH ×2 (10:08→22:39)
[2016-12-11] MEDS: XANAX PO SCH ×2 (10:09→22:40)
[2016-12-11] MEDS: CEPHULAC PO SCH (10:09)
[2016-12-12] MEDS: NACL 0.9% 1000 ML 2,000 ML IV SCH ×3 (00:24→16:58)
[2016-12-12] MEDS: TRIPLE ANTIBIOTIC TP SCH ×3 (08:42→22:27)
[2016-12-12 09:28] LABS: Anion Gap 16 mmol/L; Blood Urea Nitrogen 4 mg/dL (7-17); Calcium 8.1 mg/dL (8.4-10.2); Carbon Dioxide 23 mmol/L (22-30); Creatine Kinase 1320 units/L (30-135); Glucose 104 mg/dL (65-100); Potassium 4.1 mmol/L (3.6-5.0); Sodium 137 mmol/L (137-145)
--- NOTE | 2016-12-12 09:43 | Progress Note ---
Assessment and Plan Assessment and plan: Acute hepatic encephalopathy Continue lactulose, supportive care Ammonia level normal at 40 today HCV/cirrhosis Rhabdomyolysis Traumatic, was found down Continue iv fluids Creatine kinase much improved, 1320 today Lactic acidosis No sign/symptoms of infection Seizure disorder Thrombocytopenia Likely secondary to cirrhosis Monitor General weakness. Physical therapy consulted pain both feet, ankle. Obtain X rays DVT prophylaxis SCDs only because of thrombocytopenia. History Interval history: confusion improving, No chest pain, gen weakness pain both ankles,feet Hospitalist Physical - Physical exam Narrative exam: Gen appearance: Not in acute distress HEENT: normocephalic, atraumatic Neck: supple, no JVD, BUDDY Lungs: Clear to auscultation bilaterally, no crackles or wheezes Heart :S1 and S2 regular, no murmurs, rubs or gallop Abdomen: Soft, Non tender, non distended, bowel sounds present Extremities : no edema, no clubbing or cyanosis Neuro: Mild confusion, Awake,alert,oriented. No focal neurological signs - Constitutional Vitals: Temp Pulse Resp BP Pulse Ox 97.9 F 92 H 16 135/70 100 12/12/16 07:05 12/12/16 07:05 12/12/16 07:05 12/12/16 07:05 12/12/16 07:05 General appearance: Present: no acute distress Results - Labs CBC & Chem 7: 12/11/16 05:07 12/12/16 04:05 Labs: Laboratory Last Values WBC 7.2 K/mm3 (4.5-11.0) 12/11/16 05:07 RBC 4.00 M/mm3 (3.65-5.03) 12/11/16 05:07 Hgb 14.2 gm/dl (10.1-14.3) 12/11/16 05:07 Hct 41.7 % (30.3-42.9) 12/11/16 05:07 MCV 104 fl (79-97) H 12/11/16 05:07 MCH 35 pg (28-32) H 12/11/16 05:07 MCHC 34 % (30-34) 12/11/16 05:07 RDW 15.3 % (13.2-15.2) H 12/11/16 05:07 Plt Count 100 K/mm3 (140-440) L 12/11/16 05:07 Lymph % (Auto) 24.4 % (13.4-35.0) 12/11/16 05:07 [place] % (Auto) 14.9 % (0.0-7.3) H 12/11/16 05:07 Eos % (Auto) 4.2 % (0.0-4.3) 12/11/16 05:07 Baso % (Auto) 0.4 % (0.0-1.8) 12/11/16 05:07 Lymph # 1.8 K/mm3 (1.2-5.4) 12/11/16 05:07 [place] # 1.1 K/mm3 (0.0-0.8) H 12/11/16 05:07 Eos # 0.3 K/mm3 (0.0-0.4) 12/11/16 05:07 Baso # 0.0 K/mm3 (0.0-0.1) 12/11/16 05:07 Add Manual Diff Complete 12/09/16 12:16 Total Counted 100 12/09/16 12:16 Seg Neutrophils % 56.1 % (40.0-70.0) 12/11/16 05:07 Seg Neuts % (Manual) 66.0 % (40.0-70.0) 12/09/16 12:16 Band Neutrophils % 3.0 % 12/09/16 12:16 Lymphocytes % (Manual) 9.0 % (13.4-35.0) L 12/09/16 12:16 Reactive Lymphs % (Man) 0 % 12/09/16 12:16 Monocytes % (Manual) 22.0 % (0.0-7.3) H 12/09/16 12:16 Eosinophils % (Manual) 0 % (0.0-4.3) 12/09/16 12:16 Metamyelocytes % 0 % 12/09/16 12:16 Myelocytes % 0 % 12/09/16 12:16 Promyelocytes % 0 % 12/09/16 12:16 Blast Cells % 0 % 12/09/16 12:16 Nucleated RBC % Not Reportable 12/09/16 12:16 Seg Neutrophils # 4.1 K/mm3 (1.8-7.7) 12/11/16 05:07 Seg Neutrophils # Man 4.6 K/mm3 (1.8-7.7) 12/09/16 12:16 Band Neutrophils # 0.2 K/mm3 12/09/16 12:16 Lymphocytes # (Manual) 0.6 K/mm3 (1.2-5.4) L 12/09/16 12:16 Abs React Lymphs (Man) 0.0 K/mm3 12/09/16 12:16 Monocytes # (Manual) 1.5 K/mm3 (0.0-0.8) H 12/09/16 12:16 Eosinophils # (Manual) 0.0 K/mm3 (0.0-0.4) 12/09/16 12:16 Basophils # (Manual) 0.0 K/mm3 (0.0-0.1) 12/09/16 12:16 Metamyelocytes # 0.0 K/mm3 12/09/16 12:16 Myelocytes # 0.0 K/mm3 12/09/16 12:16 Promyelocytes # 0.0 K/mm3 12/09/16 12:16 Blast Cells # 0.0 K/mm3 12/09/16 12:16 WBC Morphology Not Reportable 12/09/16 12:16 Hypersegmented Neuts Not Reportable 12/09/16 12:16 Hyposegmented Neuts Not Reportable 12/09/16 12:16 Hypogranular Neuts Not Reportable 12/09/16 12:16 Smudge Cells Not Reportable 12/09/16 12:16 Toxic Granulation Not Reportable 12/09/16 12:16 Toxic Vacuolation Not Reportable 12/09/16 12:16 Dohle Bodies Not Reportable 12/09/16 12:16 Pelger-Huet Anomaly Not Reportable 12/09/16 12:16 Chaya Rods Not Reportable 12/09/16 12:16 Platelet Estimate Cons 12/09/16 12:16 Clumped Platelets Not Reportable 12/09/16 12:16 Plt Clumps, EDTA Not Reportable 12/09/16 12:16 Large Platelets Rare 12/09/16 12:16 Giant Platelets Not Reportable 12/09/16 12:16 Platelet Satelliting Not Reportable 12/09/16 12:16 Plt Morphology Comment Not Reportable 12/09/16 12:16 RBC Morphology Not Reportable 12/09/16 12:16 Dimorphic RBCs Not Reportable 12/09/16 12:16 Polychromasia Not Reportable 12/09/16 12:16 Hypochromasia Not Reportable 12/09/16 12:16 Poikilocytosis Not Reportable 12/09/16 12:16 Anisocytosis 1+ 12/09/16 12:16 Microcytosis Not Reportable 12/09/16 12:16 Macrocytosis Not Reportable 12/09/16 12:16 Spherocytes Not Reportable 12/09/16 12:16 Pappenheimer Bodies Not Reportable 12/09/16 12:16 Sickle Cells Not Reportable 12/09/16 12:16 Target Cells Not Reportable 12/09/16 12:16 Tear Drop Cells Not Reportable 12/09/16 12:16 Ovalocytes Not Reportable 12/09/16 12:16 Helmet Cells Not Reportable 12/09/16 12:16 Villar-[place] Bodies Not Reportable 12/09/16 12:16 [place] Rings Not Reportable 12/09/16 12:16 [place] Cells Not Reportable 12/09/16 12:16 Bite Cells Not Reportable 12/09/16 12:16 Crenated Cell Not Reportable 12/09/16 12:16 Elliptocytes Not Reportable 12/09/16 12:16 Acanthocytes (Spur) Not Reportable 12/09/16 12:16 Rouleaux Not Reportable 12/09/16 12:16 Hemoglobin C Crystals Not Reportable 12/09/16 12:16 Schistocytes Not Reportable 12/09/16 12:16 Malaria parasites Not Reportable 12/09/16 12:16 Hugo Bodies Not Reportable 12/09/16 12:16 Hem Pathologist Commnt No 12/09/16 12:16 PT 18.0 Sec. (12.2-14.9) H 12/09/16 12:29 INR 1.41 (0.87-1.13) H 12/09/16 12:29 APTT 32.4 Sec. (24.2-36.6) 12/09/16 12:29 Sodium 137 mmol/L (137-145) 12/12/16 04:05 Potassium 3.2 mmol/L (3.6-5.0) L D 12/11/16 05:07 Chloride 102.3 mmol/L (98-107) 12/12/16 04:05 Carbon Dioxide 23 mmol/L (22-30) 12/12/16 04:05 Anion Gap 16 mmol/L 12/12/16 04:05 BUN 4 mg/dL (7-17) L 12/12/16 04:05 Creatinine 0.5 mg/dL (0.7-1.2) L 12/12/16 04:05 Estimated GFR > 60 ml/min 12/12/16 04:05 BUN/Creatinine Ratio 8.00 % 12/12/16 04:05 Glucose 104 mg/dL (65-100) H 12/12/16 04:05 POC Glucose 114 (70-105) H 12/09/16 11:44 Lactic Acid 2.00 mmol/L (0.7-2.0) 12/10/16 00:01 Calcium 8.1 mg/dL (8.4-10.2) L 12/12/16 04:05 Total Bilirubin 2.90 mg/dL (0.1-1.2) H 12/11/16 05:07 AST 177 units/L (5-40) H 12/11/16 05:07 ALT 51 units/L (7-56) 12/11/16 05:07 Alkaline Phosphatase 76 units/L (35-129) 12/11/16 05:07 Ammonia 40.0 umol/L (25-60) 12/12/16 08:45 Total Creatine Kinase 1320 units/L (30-135) H 12/12/16 04:05 CK-MB (CK-2) 80.2 ng/mL (0.0-4.0) H 12/09/16 12:29 CK-MB (CK-2) Rel Index 0.9 (0-4) 12/09/16 12:29 Troponin T < 0.010 ng/mL (0.00-0.029) 12/09/16 12:16 Total Protein 6.7 g/dL (6.3-8.2) 12/11/16 05:07 Albumin 3.0 g/dL (3.9-5) L 12/11/16 05:07 Albumin/Globulin Ratio 0.8 % 12/11/16 05:07 Urine Color [place] (Yellow) 12/09/16 11:41 Urine Turbidity Clear (Clear) 12/09/16 11:41 Urine pH 6.0 (5.0-7.0) 12/09/16 11:41 Ur Specific [place] 1.012 (1.003-1.030) 12/09/16 11:41 Urine Protein <15 mg/dl mg/dL (Negative) 12/09/16 11:41 Urine Glucose (UA) Neg mg/dL (Negative) 12/09/16 11:41 Urine Ketones Neg mg/dL (Negative) 12/09/16 11:41 Urine Blood Neg (Negative) 12/09/16 11:41 Urine Nitrite Neg (Negative) 12/09/16 11:41 Urine Bilirubin Neg (Negative) 12/09/16 11:41 Urine Urobilinogen 4.0 mg/dL (<2.0) 12/09/16 11:41 Ur Leukocyte Esterase Neg (Negative) 12/09/16 11:41 Urine WBC (Auto) < 1.0 /HPF (0.0-6.0) 12/09/16 11:41 Urine RBC (Auto) 1.0 /HPF (0.0-6.0) 12/09/16 11:41 U Epithel Cells (Auto) < 1.0 /HPF (0-13.0) 12/09/16 11:41 Hyaline Casts 1 /LPF 12/09/16 11:41 Urine Mucus Few /HPF 12/09/16 11:41
[2016-12-12 09:49] LABS: Chloride 102.3 mmol/L (98-107)
[2016-12-12] MEDS: XANAX PO SCH ×2 (09:51→22:23)
[2016-12-12] MEDS: CEPHULAC PO SCH (09:51)
[2016-12-12] MEDS: KEPPRA PO SCH ×2 (09:51→22:22)
[2016-12-12] MEDS: XIFAXAN PO SCH (22:23)
--- NOTE | 2016-12-13 07:34 | XRay Report ---
BILATERAL ANKLES, 2 VIEWS History: Bilateral ankle pain. Findings: No comparison. Bone mineralization is normal. No acute osseous findings or advanced joint pathology. Mild osteoarthritic changes are identified. The soft tissues are unremarkable. Impression: Mild osteoarthritic changes. No acute process.
--- NOTE | 2016-12-13 07:38 | XRay Report ---
BILATERAL FEET, 2 VIEWS History: Bilateral foot pain. Findings: There is normal bone mineralization. There are minimal osteoarthritic changes in the mid feet bilaterally and first metatarsophalangeal joints bilaterally. No erosive joint pathology. Small accessory navicular bones are identified bilaterally, right greater than left. On the lateral view of the right foot, there is suggestion of a subtle cortical defect in the distal right fibula 5 cm proximal to the right ankle joint. This was not clearly demonstrated on the right ankle views performed same day. The etiology of this is unclear. This may represent a healing, nondisplaced fracture. Please correlate with the images and consider further evaluation with CT or MRI. Impression: Mild degenerative changes. Questionable abnormality seen in the distal right fibula, see above.
[2016-12-13] MEDS: NACL 0.9% 1000 ML 2,000 ML IV SCH ×2 (07:46→16:29)
--- NOTE | 2016-12-13 10:00 | Progress Note ---
Assessment and Plan Assessment and plan: Acute hepatic encephalopathy, much improved Continue lactulose, supportive care Ammonia level normal yesterday 40 today HCV/cirrhosis Rhabdomyolysis Traumatic, was found down Continue iv fluids Creatine kinase much improved, 509 today Lactic acidosis No sign/symptoms of infection Seizure disorder Thrombocytopenia Likely secondary to cirrhosis Monitor General weakness. Physical therapy consulted pain both feet, ankle. X ray shows some abormality right fibula. Obtain MRI right leg as recommended DVT prophylaxis SCDs only because of thrombocytopenia. Disposition. For subacute rehab placement History Interval history: confusion improving, No chest pain, gen weakness pain both feet, right worse Hospitalist Physical - Physical exam Narrative exam: Gen appearance: Not in acute distress HEENT: normocephalic, atraumatic Neck: supple, no JVD, BUDDY Lungs: Clear to auscultation bilaterally, no crackles or wheezes Heart :S1 and S2 regular, no murmurs, rubs or gallop Abdomen: Soft, Non tender, non distended, bowel sounds present Extremities : no edema, no clubbing or cyanosis, small wounds both feet Neuro: Mild confusion, Awake,alert,oriented. No focal neurological signs - Constitutional Vitals: Temp Pulse Resp BP Pulse Ox 98.3 F 92 H 20 112/66 100 12/12/16 23:00 12/12/16 23:00 12/12/16 23:00 12/12/16 23:00 12/12/16 23:00 General appearance: Present: no acute distress Results - Labs CBC & Chem 7: 12/11/16 05:07 12/12/16 04:05 Labs: Laboratory Last Values WBC 7.2 K/mm3 (4.5-11.0) 12/11/16 05:07 RBC 4.00 M/mm3 (3.65-5.03) 12/11/16 05:07 Hgb 14.2 gm/dl (10.1-14.3) 12/11/16 05:07 Hct 41.7 % (30.3-42.9) 12/11/16 05:07 MCV 104 fl (79-97) H 12/11/16 05:07 MCH 35 pg (28-32) H 12/11/16 05:07 MCHC 34 % (30-34) 12/11/16 05:07 RDW 15.3 % (13.2-15.2) H 12/11/16 05:07 Plt Count 100 K/mm3 (140-440) L 12/11/16 05:07 Lymph % (Auto) 24.4 % (13.4-35.0) 12/11/16 05:07 [place] % (Auto) 14.9 % (0.0-7.3) H 12/11/16 05:07 Eos % (Auto) 4.2 % (0.0-4.3) 12/11/16 05:07 Baso % (Auto) 0.4 % (0.0-1.8) 12/11/16 05:07 Lymph # 1.8 K/mm3 (1.2-5.4) 12/11/16 05:07 [place] # 1.1 K/mm3 (0.0-0.8) H 12/11/16 05:07 Eos # 0.3 K/mm3 (0.0-0.4) 12/11/16 05:07 Baso # 0.0 K/mm3 (0.0-0.1) 12/11/16 05:07 Add Manual Diff Complete 12/09/16 12:16 Total Counted 100 12/09/16 12:16 Seg Neutrophils % 56.1 % (40.0-70.0) 12/11/16 05:07 Seg Neuts % (Manual) 66.0 % (40.0-70.0) 12/09/16 12:16 Band Neutrophils % 3.0 % 12/09/16 12:16 Lymphocytes % (Manual) 9.0 % (13.4-35.0) L 12/09/16 12:16 Reactive Lymphs % (Man) 0 % 12/09/16 12:16 Monocytes % (Manual) 22.0 % (0.0-7.3) H 12/09/16 12:16 Eosinophils % (Manual) 0 % (0.0-4.3) 12/09/16 12:16 Metamyelocytes % 0 % 12/09/16 12:16 Myelocytes % 0 % 12/09/16 12:16 Promyelocytes % 0 % 12/09/16 12:16 Blast Cells % 0 % 12/09/16 12:16 Nucleated RBC % Not Reportable 12/09/16 12:16 Seg Neutrophils # 4.1 K/mm3 (1.8-7.7) 12/11/16 05:07 Seg Neutrophils # Man 4.6 K/mm3 (1.8-7.7) 12/09/16 12:16 Band Neutrophils # 0.2 K/mm3 12/09/16 12:16 Lymphocytes # (Manual) 0.6 K/mm3 (1.2-5.4) L 12/09/16 12:16 Abs React Lymphs (Man) 0.0 K/mm3 12/09/16 12:16 Monocytes # (Manual) 1.5 K/mm3 (0.0-0.8) H 12/09/16 12:16 Eosinophils # (Manual) 0.0 K/mm3 (0.0-0.4) 12/09/16 12:16 Basophils # (Manual) 0.0 K/mm3 (0.0-0.1) 12/09/16 12:16 Metamyelocytes # 0.0 K/mm3 12/09/16 12:16 Myelocytes # 0.0 K/mm3 12/09/16 12:16 Promyelocytes # 0.0 K/mm3 12/09/16 12:16 Blast Cells # 0.0 K/mm3 12/09/16 12:16 WBC Morphology Not Reportable 12/09/16 12:16 Hypersegmented Neuts Not Reportable 12/09/16 12:16 Hyposegmented Neuts Not Reportable 12/09/16 12:16 Hypogranular Neuts Not Reportable 12/09/16 12:16 Smudge Cells Not Reportable 12/09/16 12:16 Toxic Granulation Not Reportable 12/09/16 12:16 Toxic Vacuolation Not Reportable 12/09/16 12:16 Dohle Bodies Not Reportable 12/09/16 12:16 Pelger-Huet Anomaly Not Reportable 12/09/16 12:16 Chaya Rods Not Reportable 12/09/16 12:16 Platelet Estimate Cons 12/09/16 12:16 Clumped Platelets Not Reportable 12/09/16 12:16 Plt Clumps, EDTA Not Reportable 12/09/16 12:16 Large Platelets Rare 12/09/16 12:16 Giant Platelets Not Reportable 12/09/16 12:16 Platelet Satelliting Not Reportable 12/09/16 12:16 Plt Morphology Comment Not Reportable 12/09/16 12:16 RBC Morphology Not Reportable 12/09/16 12:16 Dimorphic RBCs Not Reportable 12/09/16 12:16 Polychromasia Not Reportable 12/09/16 12:16 Hypochromasia Not Reportable 12/09/16 12:16 Poikilocytosis Not Reportable 12/09/16 12:16 Anisocytosis 1+ 12/09/16 12:16 Microcytosis Not Reportable 12/09/16 12:16 Macrocytosis Not Reportable 12/09/16 12:16 Spherocytes Not Reportable 12/09/16 12:16 Pappenheimer Bodies Not Reportable 12/09/16 12:16 Sickle Cells Not Reportable 12/09/16 12:16 Target Cells Not Reportable 12/09/16 12:16 Tear Drop Cells Not Reportable 12/09/16 12:16 Ovalocytes Not Reportable 12/09/16 12:16 Helmet Cells Not Reportable 12/09/16 12:16 Villar-[place] Bodies Not Reportable 12/09/16 12:16 [place] Rings Not Reportable 12/09/16 12:16 [place] Cells Not Reportable 12/09/16 12:16 Bite Cells Not Reportable 12/09/16 12:16 Crenated Cell Not Reportable 12/09/16 12:16 Elliptocytes Not Reportable 12/09/16 12:16 Acanthocytes (Spur) Not Reportable 12/09/16 12:16 Rouleaux Not Reportable 12/09/16 12:16 Hemoglobin C Crystals Not Reportable 12/09/16 12:16 Schistocytes Not Reportable 12/09/16 12:16 Malaria parasites Not Reportable 12/09/16 12:16 [place] Bodies Not Reportable 12/09/16 12:16 Hem Pathologist Commnt No 12/09/16 12:16 PT 18.0 Sec. (12.2-14.9) H 12/09/16 12:29 INR 1.41 (0.87-1.13) H 12/09/16 12:29 APTT 32.4 Sec. (24.2-36.6) 12/09/16 12:29 Sodium 137 mmol/L (137-145) 12/12/16 04:05 Potassium 4.1 mmol/L (3.6-5.0) D 12/12/16 04:05 Chloride 102.3 mmol/L (98-107) 12/12/16 04:05 Carbon Dioxide 23 mmol/L (22-30) 12/12/16 04:05 Anion Gap 16 mmol/L 12/12/16 04:05 BUN 4 mg/dL (7-17) L 12/12/16 04:05 Creatinine 0.5 mg/dL (0.7-1.2) L 12/12/16 04:05 Estimated GFR > 60 ml/min 12/12/16 04:05 BUN/Creatinine Ratio 8.00 % 12/12/16 04:05 Glucose 104 mg/dL (65-100) H 12/12/16 04:05 POC Glucose 114 (70-105) H 12/09/16 11:44 Lactic Acid 2.00 mmol/L (0.7-2.0) 12/10/16 00:01 Calcium 8.1 mg/dL (8.4-10.2) L 12/12/16 04:05 Total Bilirubin 2.90 mg/dL (0.1-1.2) H 12/11/16 05:07 AST 177 units/L (5-40) H 12/11/16 05:07 ALT 51 units/L (7-56) 12/11/16 05:07 Alkaline Phosphatase 76 units/L (35-129) 12/11/16 05:07 Ammonia 40.0 umol/L (25-60) 12/12/16 08:45 Total Creatine Kinase 509 units/L (30-135) H 12/13/16 04:46 CK-MB (CK-2) 80.2 ng/mL (0.0-4.0) H 12/09/16 12:29 CK-MB (CK-2) Rel Index 0.9 (0-4) 12/09/16 12:29 Troponin T < 0.010 ng/mL (0.00-0.029) 12/09/16 12:16 Total Protein 6.7 g/dL (6.3-8.2) 12/11/16 05:07 Albumin 3.0 g/dL (3.9-5) L 12/11/16 05:07 Albumin/Globulin Ratio 0.8 % 12/11/16 05:07 Urine Color [place] (Yellow) 12/09/16 11:41 Urine Turbidity Clear (Clear) 12/09/16 11:41 Urine pH 6.0 (5.0-7.0) 12/09/16 11:41 Ur Specific [place] 1.012 (1.003-1.030) 12/09/16 11:41 Urine Protein <15 mg/dl mg/dL (Negative) 12/09/16 11:41 Urine Glucose (UA) Neg mg/dL (Negative) 12/09/16 11:41 Urine Ketones Neg mg/dL (Negative) 12/09/16 11:41 Urine Blood Neg (Negative) 12/09/16 11:41 Urine Nitrite Neg (Negative) 12/09/16 11:41 Urine Bilirubin Neg (Negative) 12/09/16 11:41 Urine Urobilinogen 4.0 mg/dL (<2.0) 12/09/16 11:41 Ur Leukocyte Esterase Neg (Negative) 12/09/16 11:41 Urine WBC (Auto) < 1.0 /HPF (0.0-6.0) 12/09/16 11:41 Urine RBC (Auto) 1.0 /HPF (0.0-6.0) 12/09/16 11:41 U Epithel Cells (Auto) < 1.0 /HPF (0-13.0) 12/09/16 11:41 Hyaline Casts 1 /LPF 12/09/16 11:41 Urine Mucus Few /HPF 12/09/16 11:41
[2016-12-13] MEDS: KEPPRA PO SCH ×2 (10:35→21:25)
[2016-12-13] MEDS: XIFAXAN PO SCH ×2 (10:36→21:25)
[2016-12-13] MEDS: XANAX PO SCH ×2 (10:36→21:25)
[2016-12-13] MEDS: CEPHULAC PO SCH (10:36)
[2016-12-13] MEDS: TRIPLE ANTIBIOTIC TP SCH ×3 (10:38→21:29)
--- NOTE | 2016-12-14 09:26 | Progress Note ---
Assessment and Plan Assessment and plan: Acute hepatic encephalopathy, now resolved Continue lactulose, supportive care Ammonia level now normal. HCV/cirrhosis Rhabdomyolysis Traumatic, was found down Continue iv fluids Creatine kinase close to normal Lactic acidosis No sign/symptoms of infection Seizure disorder Thrombocytopenia Likely secondary to cirrhosis Monitor General weakness. Physical therapy consulted pain both feet, ankle. X ray shows some abormality right fibula. MRI shows poss old healed fracture. DVT prophylaxis: SCDs only because of thrombocytopenia. Disposition. For subacute rehab placement. Medical stable for discharge. Will put discharge orders in. History Interval history: confusion resolved, No chest pain pain both feet improved Hospitalist Physical - Physical exam Narrative exam: Gen appearance: Not in acute distress HEENT: normocephalic, atraumatic Neck: supple, no JVD, BUDDY Lungs: Clear to auscultation bilaterally, no crackles or wheezes Heart :S1 and S2 regular, no murmurs, rubs or gallop Abdomen: Soft, Non tender, non distended, bowel sounds present Extremities : no edema, no clubbing or cyanosis, small wounds both feet Neuro: Mild confusion, Awake,alert,oriented. No focal neurological signs - Constitutional Vitals: Temp Pulse Resp BP Pulse Ox 98.2 F 92 H 18 133/63 100 12/14/16 00:00 12/14/16 00:00 12/14/16 00:00 12/14/16 00:00 12/14/16 00:00 General appearance: Present: no acute distress Results - Labs CBC & Chem 7: 12/11/16 05:07 12/12/16 04:05 Labs: Laboratory Last Values WBC 7.2 K/mm3 (4.5-11.0) 12/11/16 05:07 RBC 4.00 M/mm3 (3.65-5.03) 12/11/16 05:07 Hgb 14.2 gm/dl (10.1-14.3) 12/11/16 05:07 Hct 41.7 % (30.3-42.9) 12/11/16 05:07 MCV 104 fl (79-97) H 12/11/16 05:07 MCH 35 pg (28-32) H 12/11/16 05:07 MCHC 34 % (30-34) 12/11/16 05:07 RDW 15.3 % (13.2-15.2) H 12/11/16 05:07 Plt Count 100 K/mm3 (140-440) L 12/11/16 05:07 Lymph % (Auto) 24.4 % (13.4-35.0) 12/11/16 05:07 [place] % (Auto) 14.9 % (0.0-7.3) H 12/11/16 05:07 Eos % (Auto) 4.2 % (0.0-4.3) 12/11/16 05:07 Baso % (Auto) 0.4 % (0.0-1.8) 12/11/16 05:07 Lymph # 1.8 K/mm3 (1.2-5.4) 12/11/16 05:07 [place] # 1.1 K/mm3 (0.0-0.8) H 12/11/16 05:07 Eos # 0.3 K/mm3 (0.0-0.4) 12/11/16 05:07 Baso # 0.0 K/mm3 (0.0-0.1) 12/11/16 05:07 Add Manual Diff Complete 12/09/16 12:16 Total Counted 100 12/09/16 12:16 Seg Neutrophils % 56.1 % (40.0-70.0) 12/11/16 05:07 Seg Neuts % (Manual) 66.0 % (40.0-70.0) 12/09/16 12:16 Band Neutrophils % 3.0 % 12/09/16 12:16 Lymphocytes % (Manual) 9.0 % (13.4-35.0) L 12/09/16 12:16 Reactive Lymphs % (Man) 0 % 12/09/16 12:16 Monocytes % (Manual) 22.0 % (0.0-7.3) H 12/09/16 12:16 Eosinophils % (Manual) 0 % (0.0-4.3) 12/09/16 12:16 Metamyelocytes % 0 % 12/09/16 12:16 Myelocytes % 0 % 12/09/16 12:16 Promyelocytes % 0 % 12/09/16 12:16 Blast Cells % 0 % 12/09/16 12:16 Nucleated RBC % Not Reportable 12/09/16 12:16 Seg Neutrophils # 4.1 K/mm3 (1.8-7.7) 12/11/16 05:07 Seg Neutrophils # Man 4.6 K/mm3 (1.8-7.7) 12/09/16 12:16 Band Neutrophils # 0.2 K/mm3 12/09/16 12:16 Lymphocytes # (Manual) 0.6 K/mm3 (1.2-5.4) L 12/09/16 12:16 Abs React Lymphs (Man) 0.0 K/mm3 12/09/16 12:16 Monocytes # (Manual) 1.5 K/mm3 (0.0-0.8) H 12/09/16 12:16 Eosinophils # (Manual) 0.0 K/mm3 (0.0-0.4) 12/09/16 12:16 Basophils # (Manual) 0.0 K/mm3 (0.0-0.1) 12/09/16 12:16 Metamyelocytes # 0.0 K/mm3 12/09/16 12:16 Myelocytes # 0.0 K/mm3 12/09/16 12:16 Promyelocytes # 0.0 K/mm3 12/09/16 12:16 Blast Cells # 0.0 K/mm3 12/09/16 12:16 WBC Morphology Not Reportable 12/09/16 12:16 Hypersegmented Neuts Not Reportable 12/09/16 12:16 Hyposegmented Neuts Not Reportable 12/09/16 12:16 Hypogranular Neuts Not Reportable 12/09/16 12:16 Smudge Cells Not Reportable 12/09/16 12:16 Toxic Granulation Not Reportable 12/09/16 12:16 Toxic Vacuolation Not Reportable 12/09/16 12:16 Dohle Bodies Not Reportable 12/09/16 12:16 Pelger-Huet Anomaly Not Reportable 12/09/16 12:16 Chaya Rods Not Reportable 12/09/16 12:16 Platelet Estimate Cons 12/09/16 12:16 Clumped Platelets Not Reportable 12/09/16 12:16 Plt Clumps, EDTA Not Reportable 12/09/16 12:16 Large Platelets Rare 12/09/16 12:16 Giant Platelets Not Reportable 12/09/16 12:16 Platelet Satelliting Not Reportable 12/09/16 12:16 Plt Morphology Comment Not Reportable 12/09/16 12:16 RBC Morphology Not Reportable 12/09/16 12:16 Dimorphic RBCs Not Reportable 12/09/16 12:16 Polychromasia Not Reportable 12/09/16 12:16 Hypochromasia Not Reportable 12/09/16 12:16 Poikilocytosis Not Reportable 12/09/16 12:16 Anisocytosis 1+ 12/09/16 12:16 Microcytosis Not Reportable 12/09/16 12:16 Macrocytosis Not Reportable 12/09/16 12:16 Spherocytes Not Reportable 12/09/16 12:16 Pappenheimer Bodies Not Reportable 12/09/16 12:16 Sickle Cells Not Reportable 12/09/16 12:16 Target Cells Not Reportable 12/09/16 12:16 Tear Drop Cells Not Reportable 12/09/16 12:16 Ovalocytes Not Reportable 12/09/16 12:16 Helmet Cells Not Reportable 12/09/16 12:16 [place] Bodies Not Reportable 12/09/16 12:16 [place] Rings Not Reportable 12/09/16 12:16 [place] Cells Not Reportable 12/09/16 12:16 Bite Cells Not Reportable 12/09/16 12:16 Crenated Cell Not Reportable 12/09/16 12:16 Elliptocytes Not Reportable 12/09/16 12:16 Acanthocytes (Spur) Not Reportable 12/09/16 12:16 Rouleaux Not Reportable 12/09/16 12:16 Hemoglobin C Crystals Not Reportable 12/09/16 12:16 Schistocytes Not Reportable 12/09/16 12:16 Malaria parasites Not Reportable 12/09/16 12:16 [place] Bodies Not Reportable 12/09/16 12:16 Hem Pathologist Commnt No 12/09/16 12:16 PT 18.0 Sec. (12.2-14.9) H 12/09/16 12:29 INR 1.41 (0.87-1.13) H 12/09/16 12:29 APTT 32.4 Sec. (24.2-36.6) 12/09/16 12:29 Sodium 137 mmol/L (137-145) 12/12/16 04:05 Potassium 4.1 mmol/L (3.6-5.0) D 12/12/16 04:05 Chloride 102.3 mmol/L (98-107) 12/12/16 04:05 Carbon Dioxide 23 mmol/L (22-30) 12/12/16 04:05 Anion Gap 16 mmol/L 12/12/16 04:05 BUN 4 mg/dL (7-17) L 12/12/16 04:05 Creatinine 0.5 mg/dL (0.7-1.2) L 12/12/16 04:05 Estimated GFR > 60 ml/min 12/12/16 04:05 BUN/Creatinine Ratio 8.00 % 12/12/16 04:05 Glucose 104 mg/dL (65-100) H 12/12/16 04:05 POC Glucose 114 (70-105) H 12/09/16 11:44 Lactic Acid 2.00 mmol/L (0.7-2.0) 12/10/16 00:01 Calcium 8.1 mg/dL (8.4-10.2) L 12/12/16 04:05 Total Bilirubin 2.90 mg/dL (0.1-1.2) H 12/11/16 05:07 AST 177 units/L (5-40) H 12/11/16 05:07 ALT 51 units/L (7-56) 12/11/16 05:07 Alkaline Phosphatase 76 units/L (35-129) 12/11/16 05:07 Ammonia 40.0 umol/L (25-60) 12/12/16 08:45 Total Creatine Kinase 509 units/L (30-135) H 12/13/16 04:46 CK-MB (CK-2) 80.2 ng/mL (0.0-4.0) H 12/09/16 12:29 CK-MB (CK-2) Rel Index 0.9 (0-4) 12/09/16 12:29 Troponin T < 0.010 ng/mL (0.00-0.029) 12/09/16 12:16 Total Protein 6.7 g/dL (6.3-8.2) 12/11/16 05:07 Albumin 3.0 g/dL (3.9-5) L 12/11/16 05:07 Albumin/Globulin Ratio 0.8 % 12/11/16 05:07 Urine Color [place] (Yellow) 12/09/16 11:41 Urine Turbidity Clear (Clear) 12/09/16 11:41 Urine pH 6.0 (5.0-7.0) 12/09/16 11:41 Ur Specific [place] 1.012 (1.003-1.030) 12/09/16 11:41 Urine Protein <15 mg/dl mg/dL (Negative) 12/09/16 11:41 Urine Glucose (UA) Neg mg/dL (Negative) 12/09/16 11:41 Urine Ketones Neg mg/dL (Negative) 12/09/16 11:41 Urine Blood Neg (Negative) 12/09/16 11:41 Urine Nitrite Neg (Negative) 12/09/16 11:41 Urine Bilirubin Neg (Negative) 12/09/16 11:41 Urine Urobilinogen 4.0 mg/dL (<2.0) 12/09/16 11:41 Ur Leukocyte Esterase Neg (Negative) 12/09/16 11:41 Urine WBC (Auto) < 1.0 /HPF (0.0-6.0) 12/09/16 11:41 Urine RBC (Auto) 1.0 /HPF (0.0-6.0) 12/09/16 11:41 U Epithel Cells (Auto) < 1.0 /HPF (0-13.0) 12/09/16 11:41 Hyaline Casts 1 /LPF 12/09/16 11:41 Urine Mucus Few /HPF 12/09/16 11:41
[2016-12-14] MEDS: KEPPRA PO SCH ×2 (12:03→21:03)
[2016-12-14] MEDS: XIFAXAN PO SCH ×2 (12:03→21:03)
[2016-12-14] MEDS: XANAX PO SCH ×2 (12:03→21:02)
[2016-12-14] MEDS: TRIPLE ANTIBIOTIC TP SCH ×3 (12:04→21:27)
[2016-12-14] MEDS: CEPHULAC PO SCH (12:06)
--- NOTE | 2016-12-14 13:02 | Magnetic Resonance Report ---
MR LOWER EXTREMITY NON-JOINT RIGHT WITHOUT CONTRAST History: Right leg pain. Abnormal x-ray Technique: Multisequence, multiplanar MRI without IV gadolinium. Findings: Right foot and ankle films performed 12/12/13 were reviewed which suggested a questionable nondisplaced fracture in the distal fibula. Followup MRI demonstrates no evidence for bone marrow edema to suggest an acute fracture. Subtle cortical abnormality is again noted on MRI and is most consistent with a chronic, healed fracture. The remainder of the right tibia and fibular are intact. The musculotendinous structures are within normal limits. The vascular structures are patent. No inflammatory changes or fluid collection. Impression: Unremarkable MR of the right lower extremity. Assumed chronic, healed fracture of the distal fibula. See above.
--- NOTE | 2016-12-14 16:09 | Discharge Summary ---
Providers - Providers Date of Admission: 12/09/16 15:42 Date of discharge: 12/15/16 Attending physician: EDWINA DEGROOT 12/11/16 16:20 Physical Therapy Evaluation and Treat [CONS] Routine Comment: Reason For Exam: unsteady gait 12/12/16 18:28 Consult to Wound/ET Nurse [CONS] Routine Reason For Exam: wound eval Primary care physician: BRADLEY CLEMENS MD Hospitalization Condition: Fair Hospital course: Patient is 61 yo was found at home confused then brought to hospital m. In ED, was found to have elevated ammonia level,hepatic encephalopathy and rhabdomyolysis. She was started on iv fluids, Lactulose and admitted. Over several days, she felt better, her mental status went back to normal. Rhabdomyolysis resolved. She requested placement, this was arranged by shelter case manager and she was discharged to SNF on 12/15/16. Total time spent on discharge, 32 mins. Disposition: [id number] SNF W [facility] CERT - Discharge Diagnoses (1) Rhabdomyolysis Status: Acute Qualifiers: Rhabdomyolysis type: R Encounter type: E (2) Cirrhosis of liver Status: Acute Qualifiers: Hepatic cirrhosis type: H Ascites presence: A (3) Hepatic encephalopathy Status: Acute (4) Hypokalemia Status: Acute Core Measure Documentation - Palliative Care Palliative Care/ Comfort Measures: Not Applicable - Core Measures Any of the following diagnoses?: none Exam - Physical Exam Narrative exam: Gen appearance: Not in acute distress HEENT: normocephalic, atraumatic Neck: supple, no JVD, Lungs: Clear to auscultation bilaterally, no crackles or wheezes Heart :S1 and S2 regular, no murmurs, rubs or gallop Abdomen: Soft, Non tender, non distended, bowel sounds present Extremities : no edema, no clubbing or cyanosis, small wounds both feet Neuro: Awake,alert,oriented. No focal neurological signs - Constitutional Vitals: Temp Pulse Resp BP Pulse Ox 98.3 F 88 20 122/64 97 12/14/16 08:00 12/14/16 08:00 12/14/16 08:00 12/14/16 08:00 12/14/16 08:00 Plan Activity: advance as tolerated Diet: low fat, low cholesterol, low salt Additional Instructions: 1.Follow up with Physician at SNF in 3-5 days Follow up with: BRADLEY CLEMENS MD [Primary Care Provider] - 3-5 Days Prescriptions: Ciprofloxacin HCl [Ciprofloxacin TAB] 500 mg PO BID #10 tablet Lactulose [Cephulac] 10 gm PO QDAY #1 bottle
[2016-12-15 08:00] VITALS: BP 114/62
[2016-12-15] MEDS: XIFAXAN PO SCH (10:05)
[2016-12-15] MEDS: CEPHULAC PO SCH (10:05)
[2016-12-15] MEDS: XANAX PO SCH (10:05)
[2016-12-15] MEDS: KEPPRA PO SCH (10:05)
[2016-12-15] MEDS: TRIPLE ANTIBIOTIC TP SCH (10:07)
== END 2016-12-15 13:18 | DRG 565 ==
LOC: ED 11:03 → 3A 15:42
PROVIDERS: ADMIT Internal Medicine; ATTEND Internal Medicine
DX: T79.6XXA Traumatic ischemia of muscle, initial encounter (principal); E87.2 Acidosis; N17.9 Acute kidney failure, unspecified; K72.90 Hepatic failure, unspecified without coma; K74.60 Unspecified cirrhosis of liver; B19.20 Unspecified viral hepatitis C without hepatic coma; D69.6 Thrombocytopenia, unspecified; X58.XXXA Exposure to other specified factors, initial encounter; G40.909 Epilepsy, unspecified, not intractable, without status epilepticus; Z85.6 Personal history of leukemia; Z82.49 Family history of ischemic heart disease and other diseases of the circulatory system; Z88.2 Allergy status to sulfonamides
CPT/HCPCS: 36415; 70450; 70486; 71010; 72125; 80048; 80053; 81001; 82140; 82550; 82553; 82962; 84484; 85007; 85025; 85610; 85730; 93005; 93010; A6250; G8978-GP; G8979-GP; J7030